=== PATIENT | female | born 1930 | race Caucasian/White ===

== ENCOUNTER 2016-04-03 18:31 | Emergency (ER) | payer MEDICARE, OTHER ==
[2016-04-03] MEDS ORDERED: 0.9 % SODIUM CHLORIDE 500 ML IV ONE ×2 (19:03→20:22)
--- NOTE | 2016-04-03 19:29 | ED Physician Documentation ---
General Adult - HISTORIAN Historian: patient, other (sister) - HPI Stated Complaint: temp/elevated pulse Chief Complaint: General Adult Additional Information: Fell at about 1130 today and hit the back of her head. No LOC. Temp 99.4 in ER. Tylenol given at 1600. PRN lasix has been given every day for weeks. - ROS CONST: fever (per NH, no numbers given) GI/: denies: problems urinating - PAST HX Past History: hypertension, other ("chronic UTI's," Parkinson's, spinal stenosis , chronic back pain) Allergies/Adverse Reactions: Allergies Allergy/AdvReac Type Severity Reaction Status Date / Time No Known Allergies Allergy Verified 04/03/16 18:59 Home Medications: Ambulatory Orders Medication Instructions Recorded Aspirin [Adult Low Dose Aspirin EC] 81 mg PO 04/03/16 Furosemide [Lasix] 20 mg PO PRN PRN 04/03/16 Gabapentin [Neurontin] 100 mg HS 04/03/16 Meloxicam [Mobic] 15 mg PO 04/03/16 Metoprolol Tartrate [Lopressor] 25 mg PO 04/03/16 Multivit with Calcium,Iron,Min 1 each PO 04/03/16 [Tab A Belinda] Nitrofurantoin Monohyd/M-Cryst 100 mg PO Q12H #14 capsule 04/03/16 [Macrobid] Polyethylene Glycol 3350 [Miralax] 04/03/16 Psyllium Husk [Metamucil] 425 gm PO 04/03/16 Ropinirole HCl [Ropinirole HCl] 04/03/16 Sertraline HCl [Sertraline HCl] 04/03/16 Trospium Chloride [Sanctura] 20 mg PO 04/03/16 amLODIPine BESYLATE [Norvasc] 5 mg PO 0900 04/03/16 - SOCIAL HX Smoking History: non-smoker Alcohol Use: none Drug Use: none - FAMILY HX Family History: No - VITAL SIGNS Vital Signs: Vital Signs Temp Pulse Resp BP Pulse Ox 99.2 F 92 H 18 113/58 97 04/03/16 18:50 04/03/16 18:50 04/03/16 18:50 04/03/16 18:50 04/03/16 18:50 - REVIEWED ASSESSMENTS Nursing Assessment Reviewed: Yes Vitals Reviewed: Yes Progress - Progress Progress: CT brain noncontrast Date of study: April 03, 2016. CLINICAL HISTORY: PT FELL TODAY, HIT BACK OF HEAD (Hx) / FALL (DICOM Hx) TECHNIQUE: 5 mm contiguous axial images of the brain, noncontrast with sagittal and coronal multiplanar reconstructions. FINDINGS: Diffuse cortical and central atrophy is present with chronic periventricular microvascular ischemic changes. 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 Chronic infarcts are present in the right external capsule. There is no evidence of intracranial mass effect, hemorrhage, or acute infarct. The lateral ventricles are symmetrical and the 4th ventricle is midline without shift. No acute brain parenchymal changes or extra-axial fluid collections are identified. The posterior fossa contents are within normal limits. Left occipital scalp soft tissue swelling is present at the vertex with a small component of scalp hematoma. The calvarium is intact. The visualized sinuses and mastoid air cells are clear. IMPRESSION: No acute intracranial process. Atrophy and chronic infarcts. Left occipital scalp soft tissue swelling and small component of scalp hematoma. Electronically signed on Apr 03, 2016 7:25:13 PM SOCIAL SERVICE MANAGER by: Irving Stearns Chest AP portable Exam: April 03, 2016. Clinical history: Fall. Findings: There are no comparison studies. The cardiac and mediastinal silhouettes are normal. The lungs are clear. There is now evidence of pneumothorax. The trachea is midline. Aortic arch atherosclerotic calcifications are noted. Impression: No acute cardiopulmonary abnormality. Electronically signed on Apr 03, 2016 7:34:04 PM SOCIAL SERVICE MANAGER by: Irving Stearns UA with 1+ leuk's, sp gr 1.025 ED Results Lab/Radiology - Orders Orders: ED Orders Category Date Time Status Place Saline Lock/IV Now Care 04/03/16 19:03 Active CHEST 1 VIEW [RAD] Stat Exams 04/03/[address] BRAIN W/O CONTRAST Stat Exams 04/03/16 Ordered CBC/PLATELET/DIFF Routine Lab 04/03/16 Ordered CMP Routine Lab 04/03/16 Ordered URINALYSIS Routine Lab 04/03/16 Ordered 0.9 % Sodium Chloride [Normal Saline] 500 ml Med 04/03/16 19:03 Active IV NOW General Adult Physical Exam - PHYSICAL EXAM GENERAL APPEARANCE: no distress EENT: eye inspection normal, pharynx normal, dry mucous membranes NECK: normal inspection, supple RESPIRATORY: no resp distress, chest non-tender, breath sounds normal CVS: reg rate & rhythm, murmur (1-2/6 RENITA) ABDOMEN: soft, normal bowel sounds, no distension RECTAL: deferred BACK: normal inspection, no CVA tenderness SKIN: warm/dry, normal color EXTREMITIES: no evidence of injury, no edema NEURO: CN's nml as tested, motor nml, sensation nml Discharge Clincal Impression: UTI (urinary tract infection) Qualifiers: Urinary tract infection type: acute cystitis Hematuria presence: with hematuria Qualified Code(s): N30.01 - Acute cystitis with hematuria Additional Instructions: Drink more water. Take all the antibiotics as prescribed. Home Medications: Ambulatory Orders Aspirin [Adult Low Dose Aspirin EC] 81 mg PO 04/03/16 Furosemide [Lasix] 20 mg PO PRN PRN 04/03/16 Gabapentin [Neurontin] 100 mg HS 04/03/16 Meloxicam [Mobic] 15 mg PO 04/03/16 Metoprolol Tartrate [Lopressor] 25 mg PO 04/03/16 Multivit with Calcium,Iron,Min [Tab A Belinda] 1 each PO 04/03/16 Nitrofurantoin Monohyd/M-Cryst [Macrobid] 100 mg PO Q12H #14 capsule 04/03/16 Polyethylene Glycol 3350 [Miralax] 04/03/16 Psyllium Husk [Metamucil] 425 gm PO 04/03/16 Ropinirole HCl [Ropinirole HCl] 04/03/16 Sertraline HCl [Sertraline HCl] 04/03/16 Trospium Chloride [Sanctura] 20 mg PO 04/03/16 amLODIPine BESYLATE [Norvasc] 5 mg PO 0900 04/03/16 Condition: Fair Disposition: 01 HOME, SELF-CARE Decision to Admit: NO Decision Time: 20:27
[2016-04-03 19:56] LABS: BASOPHILS % 0.2 (0.0-1.5); EOSINOPHILS % 1.1 % (0.0-6.8); LYMPHOCYTES # 0.7 # k/uL (0.6-4.0); MEAN CORPUSCULAR HEMOGLOBIN 30.6 pg (28.0-34.0); MONOCYTES # 0.4 # k/uL (0.0-0.9); MONOCYTES % 4.3 % (0.0-11.0); NEUTROPHILS # 7.6 # k/uL (1.4-7.7)
[2016-04-03 20:03] LABS: eGFR (African) > 60; eGFR (Non-African) > 60
[2016-04-03] MEDS ORDERED: NITROFURANTOIN 100 MG CAPSULE PO ONE ×2 (20:22→20:23)
[2016-04-03 21:20] VITALS: BP 115/68
--- NOTE | 2016-04-04 02:08 | Diagnostic Imaging Report ---
Report Submission Date: Apr 03, 2016 7:34:04 PM SHEET METAL MECHANIC Patient ~ Study Name: VON CHILDRESS ~ Date: Apr 03, 2016 7:17:01 PM SHEET METAL MECHANIC ~ Modality Type: CR Gender: F ~ Description: CHEST : 29 ~ Institution: [facility] Physician: JEFF CAZARES ~ ~ ~ ~ Chest AP portable Exam: April 03, 2016. Clinical history: Fall. Findings: There are no comparison studies. The cardiac and mediastinal silhouettes are normal. The lungs are clear. There is now evidence of pneumothorax. The trachea is midline. Aortic arch atherosclerotic calcifications are noted. Impression: No acute cardiopulmonary abnormality. ~ Electronically signed on Apr 03, 2016 7:34:04 PM SHEET METAL MECHANIC by: Irving ELLER
--- NOTE | 2016-04-04 02:09 | Diagnostic Imaging Report ---
Report Submission Date: Apr 03, 2016 7:25:13 PM HEAVY EQUIPMENT FIELD MECHANIC Patient ~ Study Name: VON CHILDRESS ~ Date: Apr 03, 2016 7:09:16 PM HEAVY EQUIPMENT FIELD MECHANIC ~ Modality Type: CT\SR Gender: F ~ Description: CT BRAIN W/O CONTRAST : 29 ~ Institution: [facility] Physician: JEFF CAZARES ~ ~ ~ ~ CT brain noncontrast Date of study: April 03, 2016. CLINICAL HISTORY:~ PT FELL TODAY, HIT BACK OF HEAD (Hx) / FALL (DICOM Hx) TECHNIQUE: 5 mm contiguous axial images of the brain, noncontrast with sagittal and coronal multiplanar reconstructions. FINDINGS: Diffuse cortical and central atrophy is present with chronic periventricular microvascular ischemic changes. 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 Chronic infarcts are present in the right external capsule. There is no evidence of intracranial mass effect, hemorrhage, or acute infarct. The lateral ventricles are symmetrical and the 4th ventricle is midline without shift. No acute brain parenchymal changes or extra-axial fluid collections are identified. The posterior fossa contents are within normal limits. Left occipital scalp soft tissue swelling is present at the vertex with a small component of scalp hematoma. The calvarium is intact. The visualized sinuses and mastoid air cells are clear. IMPRESSION: No acute intracranial process. Atrophy and chronic infarcts. Left occipital scalp soft tissue swelling and small component of scalp hematoma. ~ Electronically signed on Apr 03, 2016 7:25:13 PM HEAVY EQUIPMENT FIELD MECHANIC by: Irving ELLER
[2016-04-04 05:57] LABS: APPEARANCE,URINE CLOUDY (CLEAR); COLOR,URINE YELLOW (YELLOW); OCCULT BLOOD,URINE 1+ (NEGATIVE); UROBILINOGEN URINE 0.2 Eu (0.2-1.0)
== END 2016-04-03 20:55 | disposition home or self-care (01) ==
LOC: ED 18:31
DX: N30.01 Acute cystitis with hematuria (principal)
CPT/HCPCS: 70450; 71010; 80053; 81002; 85025; 87088; 87186; 96360; 96361; 99283; 99284; J7060; S1016

== ENCOUNTER 2016-07-04 16:19 | Inpatient (IN) | payer MEDICARE, OTHER ==
[2016-07-04 16:49] LABS: BASOPHILS % 0.5 (0.0-1.5); EOSINOPHILS % 4.2 % (0.0-6.8); MEAN CORPUSCULAR HEMOGLOBIN 29.3 pg (28.0-34.0); MEAN CORPUSCULAR VOLUME 93.8 fl (80.0-100.0); NEUTROPHILS # 5.5 # k/uL (1.4-7.7)
[2016-07-04 16:59] LABS: eGFR (African) > 60; eGFR (Non-African) > 60
[2016-07-04] MEDS ORDERED: SALINE FLUSH 10 ML DISP.SYRIN IVF ONE ×2 (17:51→23:31)
[2016-07-04] MEDS ORDERED: traMADol HCL 50 MG TABLET PO PRN (18:46)
[2016-07-04] MEDS ORDERED: FUROSEMIDE 20 MG TABLET PO PRN (18:46)
[2016-07-04] MEDS ORDERED: 0.9 % SODIUM CHLORIDE 1,000 ML IV SCH (19:00)
[2016-07-04] MEDS ORDERED: GABAPENTIN 100 MG CAPSULE ONE (19:03)
[2016-07-04] MEDS ORDERED: traMADol HCL 50 MG TABLET ONE (19:35)
[2016-07-04] MEDS ORDERED: GABAPENTIN 100 MG CAPSULE PO SCH (21:00)
[2016-07-04] MEDS ORDERED: traMADol HCL 50 MG TABLET PO SCH (21:00)
--- NOTE | 2016-07-04 21:32 | History and Physical Report ---
History of Present Illnes - History of Present Illness Reason for Visit: fatigue, does not feel well History of Present Illness: 85yo white female who states that she has not been feeling well over the last several weeks. Today she has a sudden episode where she became lightheaded and felt that she might pass out. Just did not feel well and came to the clinic for evaluation. Patient denies any fever or chills. No chest pain. Has had some heart palpitations at times. No orthopnic symptoms except for today. Patient has had some chronic anemia problems. Last Hgb was 11.8 on Apr 03. Today's Hgb is 7.7. Patient denies any melena or hematachezia. Has had some mild indigestion at times. Patient was seen in clinic today and had a slight drop in BP with orthostatic changes, (13ml Hg) Patient appeared to have some air fluids levels in darrell small bowel on x-ray. She did have two small BM today. Does feel bloated some and has been nauseated but no vomiting noted. Because of symptomatic anemia and possibly deveoping illeus patient was admitted tot [facility] for transfusion and further evaluation and treatment. - Past Medical History Cardiac: HTN CANNONEER: Other (? Parkinson's disease) Psych: Depression Musculoskeletal: Osteoarthritis, Other (spinal stenosis) - Past Surgical History Past Surgical History: None - Past Family History Mother Family History: Father Family History: (elderly age from unkown cause) - Past Social History Smoke: No Alcohol: None Drugs: None Lives: Care Home ([facility]) Domestic Violence: Negative - Health Maintenance Health Maintenance: Influenza Vaccine, Pneumococcal Vaccine Influenza Vaccine: Current for this Influenza Season Pneumonia Vaccine: Yes Resuscitation Status: Resusciation Status Resuscitation Status Full Code - Unable to Obtain History Unable to Obtain: Yes Review of Systems - Review of Systems Constitutional: Weakness, Malaise. negative: Fever, Chills, Sweats Eyes: negative: pain, vision change ENT: negative: Ear Pain, Ear Discharge, Nose Pain, Nose Discharge, Nose Congestion, Mouth Pain, Mouth Swelling, Throat Swelling Respiratory: Shortness of Breath, SOB with Excertion. negative: Cough, Hemoptysis, Pleuritic Pain Cardiovascular: Palpitations, Orthopnea, Light Headedness. negative: Chest Pain , Paroxysmal Noc. Dyspnea Gastrointestinal: negative: Nausea, Vomiting, Abdominal Pain, Diarrhea, Constipation, Melena, Hematochezia Genitourinary: Incontinence, Other (uterine prolapse). negative: Dysuria, Frequency Musculoskeletal: Neck Pain, Back Pain Skin: negative: Rash Neurological: Weakness. negative: Numbness, Incoordination, Change in Speech, Confusion, Seizures - Medications/Allergies Allergies/Adverse Reactions: Allergies Allergy/AdvReac Type Severity Reaction Status Date / Time No Known Allergies Allergy Verified 04/03/16 18:59 Current Inpatient Medications: Current Inpatient Medications Amlodipine Besylate (Norvasc) 5 mg PO 0900 [facility] Furosemide (Lasix) 20 mg PO PRN PRN PRN Reason: edema Gabapentin (Neurontin) 100 mg PO HS [facility] Last Admin: 07/04/16 19:39 Dose: 100 mg Sodium Chloride (Normal Saline) 1,000 mls @ 100 mls/hr IV Q10H [facility] Last Admin: 07/04/16 18:55 Dose: 100 mls/hr Polyethylene Glycol (Miralax) 17 gm PO D BARB Tramadol HCl (Ultram) 50 mg PO QID PRN PRN Reason: PAIN Tramadol HCl (Ultram) 100 mg PO [facility] Last Admin: 07/04/16 19:39 Dose: 100 mg Exam - Exam Vital Signs: Vital Signs (72 hours) 07/04/16 18:40 Temperature 97.5 F L Pulse Rate [ 96 H Left] Respiratory 20 Rate Blood Pressure 106/62 [Left Arm] O2 Sat by Pulse 99 Oximetry General: Alert, Oriented to Person, Oriented to Place, Cooperative, Mild distress. No: Oriented to Time HEENT: Atraumatic, PERRLA, Mouth Mucous membr. moist/[place], Dentition Normal, Decreased Hearing Acuity Neck: Normal Range of Motion. No: Stridor, Rigidity, Lymphadenopathy Carotids: WNL Thyroid: WNL Lungs: Clear to auscultation, Normal air movement, Speaks full Sentences. No: Respiratory Distress, Wheezes, Rales, Rhonchi Cardiovascular: Regular rate, Normal S1, Normal S2, Murmur Murmur: Systolic Murmur (grade 1/6) Murmur Location: Left Sternal [place] Heart Murmur Grade: I Peripheral Edema: none Abdomen: No tenderness, No hepatospenomegaly, Distended (mild), Decreased Bowel Sounds Female Genitourinary: Prolapse Integumentary: Normal, [place], Warm Extremities: No clubbing, No cyanosis, No edema. No: Normal pulses (dimenished) Neurological: Normal speech, Strength Equal Bilat, Normal tone, Sensation intact , Cranial nerves 3-12 NL, Reflexes 2+. No: Normal gait Psych/Mental Status: Mental status NL, Mood NL, Intact Judgment - Laboratory Results Laboratory Results: Laboratory Results 07/04/16 07/04/16 07/04/16 16:28 16:28 16:28 WBC 8.70 RBC 2.62 L Hgb 7.7 L Hct 24.5 L MCV 93.8 MCH 29.3 MCHC 31.3 RDW 16.2 H Plt Count 297 Neut % (Auto) 63.6 Lymph % (Auto) 27.3 [place] % (Auto) 3.0 Eos % (Auto) 4.2 Baso % (Auto) 0.5 Neut # 5.5 Lymph # 2.4 [place] # 0.3 Eos # 0.4 Baso # 0.0 Reactive Lymphs % 1.5 Reactive Lymphs # 0.1 Sodium 135 L Potassium 4.0 Chloride 107 Carbon Dioxide 24 BUN 36 H Creatinine 0.8 Est GFR ( Amer) > 60 Est GFR (Non-Af Amer) > 60 Glucose 145 H Calcium 8.9 Total Bilirubin 0.4 AST 17 ALT 11 Alkaline Phosphatase 45 L Troponin I < 0.03 L NT-Pro-B Natriuret Pep 219.0 Total Protein 5.8 L Albumin 3.6 Stool Guaiac Test 07/04/16 20:00 WBC RBC Hgb Hct MCV MCH MCHC RDW Plt Count Neut % (Auto) Lymph % (Auto) [place] % (Auto) Eos % (Auto) Baso % (Auto) Neut # Lymph # [place] # Eos # Baso # Reactive Lymphs % Reactive Lymphs # Sodium Potassium Chloride Carbon Dioxide BUN Creatinine Est GFR ( Amer) Est GFR (Non-Af Amer) Glucose Calcium Total Bilirubin AST ALT Alkaline Phosphatase Troponin I NT-Pro-B Natriuret Pep Total Protein Albumin Stool Guaiac Test Positive H Assessment/Plan - Assessment/Plan (1) Anemia Status: Acute Qualifiers: Anemia type: unspecified type Qualified Code(s): D64.9 - Anemia, unspecified Assessment: suspect due to GI blood loss. Will get stool guiac,will transfuse 2 untis of PRBC and recheck H&H (2) Ileus, unspecified Status: Acute Assessment: Patient is having some small BM. Will place on clear liquids at thsi time and monitor. (3) Essential hypertension Status: Chronic Assessment: Will monitor and continue with home meds. VTE Assessment - RISK FACTOR SCORE VTE RISK FACTOR SCORES: AGE OVER 60 YEARS, ANTICIPATED BED CONFINEMENT OR IMMOBILIZATION > 24 HOURS - RISK VTE MODERATE RISK: SCORE OF 2 (RISK PROXIMAL DVT 2-4%) PROPHYAXIS NEEDED ( Possible GI bleed, will monitor.)
[2016-07-04] MEDS ORDERED: LORazepam 0.5 MG TABLET ONE (21:35)
[2016-07-04] MEDS: LORazepam 0.5 MG TABLET PO PRN (21:39)
[2016-07-04] MEDS ORDERED: ACETAMINOPHEN 325 MG TABLET ONE (21:42)
[2016-07-04] MEDS ORDERED: diphenhydrAMINE HCL 25 MG TABLET PO ONE ×2 (21:43→22:09)
[2016-07-04] MEDS ORDERED: ONDANSETRON HCL/PF 4 MG/ 2ML VIAL IVP ONE (22:06)
[2016-07-04] MEDS ORDERED: ACETAMINOPHEN 325 MG TABLET PO ONE (22:10)
--- NOTE | 2016-07-04 22:48 | Diagnostic Imaging Report ---
NADINE HELTON [facility] [id number] [facility] [address] [place], [place]. [address] Report Submission Date: July 04, 2016 5:39:49 PM CDT Patient Study Name: VON CHILDRESS Date: July 04, 2016 4:45:35 PM CDT Modality Type: CR Gender: F Description: CHEST : 28 Institution: [facility] Physician: NADIEN HELTON PA and lateral chest Clinical history short of breath weakness Technique PA and lateral radiographs of the chest the Comparison April 03, 2016 Findings: The lung micheel are hyperinflated. Compression fractures are present in the thoracic spine. No hilar mediastinal mass is seen. There is aortic atherosclerosis. No pleural effusions are seen. Impression: Aortic atherosclerosis Hyperinflation No acute infiltrate Thoracic spine compression fractures Electronically signed on July 04, 2016 5:39:49 PM CDT by: Arik ELLER
--- NOTE | 2016-07-04 22:49 | Diagnostic Imaging Report ---
NADINE HELTON [facility] [address] [facility] [address] [place], [place]. [address] Report Submission Date: July 04, 2016 5:41:57 PM CDT Patient Study Name: VON CHILDRESS Date: July 04, 2016 4:42:56 PM CDT Modality Type: CR Gender: F Description: ABDOMEN : 28 Institution: [facility] Physician: NADINE HELTON Abdominal series Supine and upright Findings: There is no free air. There are few air-fluid levels scattered through the bowel consistent with ileus or gastroenteritis. No abdominal masses seen. The lung bases are clear. There is lumbar spondylosis. A calcified uterine fibroid is present in the pelvis. Hip degenerative arthritis is present. A hiatus hernia is present in the chest. There is no air fluid level in the hiatus hernia. Impression : ileus or gastroenteritis Hiatus hernia Calcified uterine fibroid Electronically signed on July 04, 2016 5:41:57 PM CDT by: Arik ELLER
[2016-07-04] MEDS ORDERED: ONDANSETRON HCL/PF 4 MG/ 2ML VIAL ONE (22:52)
[2016-07-04] MEDS ORDERED: PANTOPRAZOLE SODIUM INJ. 40 MG VIAL ONE (22:53)
[2016-07-04] MEDS ORDERED: 0.9 % SODIUM CHLORIDE 50 ML IV ONE (22:59)
[2016-07-04] MEDS ORDERED: PANTOPRAZOLE SODIUM 40 MG in 0.9 % SODIUM CHLORIDE 50 ML IV SCH (23:00)
[2016-07-04 23:11] LABS: SERUM IRON 83 ug/dL (37-145)
[2016-07-04] MEDS ORDERED: LORazepam 2 MG/ML VIAL IVP ONE (23:22)
[2016-07-04] MEDS ORDERED: LORazepam 2 MG/ML VIAL ONE (23:32)
[2016-07-04 23:43] VITALS: BMI 25.9
--- NOTE | 2016-07-05 00:56 | History and Physical Report ---
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 Parkinson's disease) Psych: Depression Musculoskeletal: Osteoarthritis, Other (spinal stenosis) - Past Surgical History Past Surgical History: None - Past Social History Smoke: No Alcohol: None Drugs: None Lives: [facility] ([facility]) Domestic Violence: Negative - Health Maintenance Health Maintenance: Influenza Vaccine, Pneumococcal Vaccine Resuscitation Status: Resusciation Status Resuscitation Status Full Code Review of Systems - Medications/Allergies Allergies/Adverse Reactions: Allergies Allergy/AdvReac Type Severity Reaction Status Date / Time No Known Allergies Allergy Verified 04/03/16 18:59 Current Inpatient Medications: Current Inpatient Medications Acetaminophen (Tylenol) 325 mg PO NOW ONE Stop: 07/04/16 22:11 Last Admin: 07/04/16 21:45 Dose: 325 mg Amlodipine Besylate (Norvasc) 5 mg PO 0900 BARB Diphenhydramine HCl (Benadryl) 25 mg PO NOW ONE Stop: 07/04/16 22:10 Last Admin: 07/04/16 21:45 Dose: 25 mg Furosemide (Lasix) 20 mg PO PRN PRN PRN Reason: edema Gabapentin (Neurontin) 100 mg PO HS BARB Last Admin: 07/04/16 19:39 Dose: 100 mg Sodium Chloride (Normal Saline) 1,000 mls @ 100 mls/hr IV Q10H BARB Last Admin: 07/04/16 18:55 Dose: 100 mls/hr Pantoprazole Sodium 40 mg/ (Sodium Chloride) 50 mls @ 100 mls/hr IV 1T [facility] Last Admin: 07/04/16 23:20 Dose: 100 mls/hr Lorazepam (Ativan) 0.5 mg PO HS PRN PRN Reason: Insomnia Last Admin: 07/04/16 21:39 Dose: 0.5 mg Lorazepam (Ativan) 1 mg IVP NOW ONE Stop: 07/04/16 23:23 Last Admin: 07/04/16 23:30 Dose: 1 mg Ondansetron HCl (Zofran 4 Mg/2 Ml) 4 mg IVP NOW ONE Stop: 07/04/16 22:07 Last Admin: 07/04/16 22:59 Dose: 4 mg Polyethylene Glycol (Miralax) 17 gm PO D BARB Tramadol HCl (Ultram) 50 mg PO QID PRN PRN Reason: PAIN Tramadol HCl (Ultram) 100 mg PO HS [facility] Last Admin: 07/04/16 19:39 Dose: 100 mg Exam - Exam Vital Signs: Vital Signs (72 hours) 07/04/16 07/04/16 18:40 22:40 Temperature 97.5 F L Pulse Rate [ 96 H 102 H Left] Respiratory 20 20 Rate Blood Pressure 106/62 [Left Arm] O2 Sat by Pulse 99 Oximetry - Laboratory Results Laboratory Results: Laboratory Results 07/04/16 07/04/16 07/04/16 16:28 16:28 16:28 WBC 8.70 RBC 2.62 L Hgb 7.7 L Hct 24.5 L MCV 93.8 MCH 29.3 MCHC 31.3 RDW 16.2 H Plt Count 297 Neut % (Auto) 63.6 Lymph % (Auto) 27.3 [place] % (Auto) 3.0 Eos % (Auto) 4.2 Baso % (Auto) 0.5 Neut # 5.5 Lymph # 2.4 [place] # 0.3 Eos # 0.4 Baso # 0.0 Reactive Lymphs % 1.5 Reactive Lymphs # 0.1 Sodium 135 L Potassium 4.0 Chloride 107 Carbon Dioxide 24 BUN 36 H Creatinine 0.8 Est GFR ( Amer) > 60 Est GFR (Non-Af Amer) > 60 Glucose 145 H Calcium 8.9 Iron Iron (send out) TIBC % Saturation Total Bilirubin 0.4 AST 17 ALT 11 Alkaline Phosphatase 45 L Troponin I < 0.03 L NT-Pro-B Natriuret Pep 219.0 Total Protein 5.8 L Albumin 3.6 Stool Guaiac Test 07/04/16 07/04/16 16:30 20:00 WBC RBC Hgb Hct MCV MCH MCHC RDW Plt Count Neut % (Auto) Lymph % (Auto) [place] % (Auto) Eos % (Auto) Baso % (Auto) Neut # Lymph # [place] # Eos # Baso # Reactive Lymphs % Reactive Lymphs # Sodium Potassium Chloride Carbon Dioxide BUN Creatinine Est GFR ( Amer) Est GFR (Non-Af Amer) Glucose Calcium Iron 83 Iron (send out) 83 TIBC 281 % Saturation 30 Total Bilirubin AST ALT Alkaline Phosphatase Troponin I NT-Pro-B Natriuret Pep Total Protein Albumin Stool Guaiac Test Positive H
--- NOTE | 2016-07-05 01:00 | Discharge Summary ---
Discharge Summary - Discharge Sumary History of Present Illness: 85yo white female who states that she has not been feeling well over the last several weeks. Today she has a sudden episode where she became lightheaded and felt that she might pass out. Just did not feel well and came to the clinic for evaluation. Patient denies any fever or chills. No chest pain. Has had some heart palpitations at times. No orthopnic symptoms except for today. Patient has had some chronic anemia problems. Last Hgb was 11.8 on Apr 03. Today's Hgb is 7.7. Patient denies any melena or hematachezia. Has had some mild indigestion at times. Patient was seen in clinic today and had a slight drop in BP with orthostatic changes, (13ml Hg) Patient appeared to have some air fluids levels in darrell small bowel on x-ray. She did have two small BM today. Does feel bloated some and has been nauseated but no vomiting noted. Because of symptomatic anemia and possibly deveoping illeus patient was admitted tot [facility] for transfusion and further evaluation and treatment. Condition at Discharge: Guarded Home Medications: Ambulatory Orders Medication Instructions Recorded Aspirin [Adult Low Dose Aspirin EC] 81 mg PO 04/03/16 Furosemide [Lasix] 20 mg PO PRN PRN 04/03/16 Gabapentin [Neurontin] 100 mg HS 04/03/16 Meloxicam [Mobic] 15 mg PO 04/03/16 Metoprolol Tartrate [Lopressor] 25 mg PO 04/03/16 Multivit with Calcium,Iron,Min 1 each PO 04/03/16 [Tab A Belinda] Nitrofurantoin Monohyd/M-Cryst 100 mg PO Q12H #14 capsule 04/03/16 [Macrobid] Polyethylene Glycol 3350 [Miralax] 04/03/16 Psyllium Husk [Metamucil] 425 gm PO 04/03/16 Ropinirole HCl 04/03/16 Sertraline HCl 04/03/16 Trospium Chloride [Sanctura] 20 mg PO 04/03/16 amLODIPine BESYLATE [Norvasc] 5 mg PO 0900 04/03/16 Consultations this Visit: None Procedures this Visit: None Allergies/Adverse Reactions: Allergies Allergy/AdvReac Type Severity Reaction Status Date / Time No Known Allergies Allergy Verified 04/03/16 18:59 Patient Problems: Current Active Problems Problem Status Onset Anemia Acute Ileus, unspecified Acute Essential hypertension Chronic Discharge Summary: Patient was admitted for treatment of GI bleed with IV PPI and blood transfusion. During infusion of 1st unit, patient developed coffee ground emesis. NG tube was placed. Eventually drainage was noted to be bright red blood. Patient became very combative, pulling out both IV sites and her NG tube. NG cannister was noted to be 1500 cc bright red blood. BP was 140/80 with pulse 80. Decision was made to transfer to a facility with GI consult abilities. I contacted [facility], which was patient family preference. After not hearing back from the housekeeper manager, Caitlyn, 40 min later, I called her back. I was told "there was nothing they could do for her until morning." I instructed her that this patient is an acute GI bleed and needs to be in a higher level of care. She said she would check with hospitalist again. She called back in 10 min. I was put on the phone with Dr. Conteh who told me it didn't sound like she needed to be transferred, despite the volume of blood we were getting out in such a short amount of time. I then contacted the [facility] and got an accepting physician. Patient transported in stable but guarded condition. Hospital Course: Discharge Dx: Acute GI bleed. HTN. Disposition: [facility]
[2016-07-05] MEDS: LORazepam 0.5 MG TABLET PO PRN (01:25)
[2016-07-05 02:40] VITALS: BP 141/87
[2016-07-05] MEDS ORDERED: amLODIPine BESYLATE 5 MG TABLET PO SCH (09:00)
[2016-07-05] MEDS ORDERED: PANTOPRAZOLE SODIUM 40 MG in 0.9 % SODIUM CHLORIDE 50 ML IV SCH (09:00)
[2016-07-05] MEDS ORDERED: POLYETHYLENE GLYCOL 3350 17 GM POWD.PACK PO SCH (09:00)
== END 2016-07-05 02:15 | disposition short-term general hospital (02) | DRG 379 ==
LOC: RAD 16:19 → SOUTH 17:42
PROVIDERS: ADMIT Family Medicine; ATTEND Family Medicine
DX: K92.2 Gastrointestinal hemorrhage, unspecified (principal); R06.02 Shortness of breath; K92.0 Hematemesis; R10.84 Generalized abdominal pain; I10 Essential (primary) hypertension
CPT/HCPCS: 36415; 71020; 74020; 80053; 82270; 83540; 83550; 83880; 84484; 85025; 86885; 86900; 86901; 86920; 99223; 99238; J2060; J2405; P9040; J7030; Q0163; S1016

== ENCOUNTER 2017-02-13 10:54 | Outpatient (CLI) | payer MEDICARE, OTHER ==
[2017-02-13 11:15] LABS: MEAN CORPUSCULAR HEMOGLOBIN 30.6 pg (28.0-34.0); MEAN CORPUSCULAR VOLUME 91.4 fl (80.0-100.0)
== END 2017-02-13 11:05 ==
LOC: LAB 10:54
PROVIDERS: ATTEND Family Medicine
DX: I10 Essential (primary) hypertension (principal); K57.92 Diverticulitis of intestine, part unspecified, without perforation or abscess without bleeding; G25.81 Restless legs syndrome; D72.829 Elevated white blood cell count, unspecified; R00.0 Tachycardia, unspecified
CPT/HCPCS: 36415; 85014; 85018

== ENCOUNTER 2017-05-08 08:59 | Emergency (ER) | payer MEDICARE, OTHER ==
[2017-05-08] MEDS ORDERED: IPRATROPIUM/ALBUTEROL SULFATE 3 ML AMPUL.NEB NEB ONE (09:28)
--- NOTE | 2017-05-08 09:34 | ED Physician Documentation ---
Dyspnea - HISTORIAN Historian: patient - HPI Chief Complaint: Dyspnea Additional Information: NH resident, not good historian, says nurses told her she wasn't breathing right this morning. She thinks her ankles are swelling more. No complaints otherwise, no pain, no fever. Onset: hours Duration: continues in ED Severity: mild Exacerbated By: nothing Associated Symptoms: none Further Comments: no - ROS CONST: no problems EYES/ENT: none GI/: none NEURO/PSYCH: denies: headache MS/SKIN/LYMPH: none - PAST HX Lung Disease: none Cardiac Disease: CHF PE Risk Factors: hypertension, leg swelling Surgeries/Procedures: other (unknown bladder surgery 40 years ago.) Immunizations: UTD Allergies/Adverse Reactions: Allergies Allergy/AdvReac Type Severity Reaction Status Date / Time No Known Allergies Allergy Verified 04/03/16 18:59 Home Medications: Ambulatory Orders Medication Instructions Recorded Aspirin [Senait] 81 mg PO D 05/08/17 Atorvastatin Calcium [Lipitor] 40 mg PO D 05/08/17 Bisacodyl 5 mg PO D 05/08/17 Furosemide [Lasix] 40 mg PO D 05/08/17 Gabapentin 100 mg PO BID 05/08/17 Loratadine [Claritin] 10 mg PO D 05/08/17 Metoprolol Tartrate [Lopressor] 25 mg PO D 05/08/17 Mirtazapine 7.5 mg PO HS 05/08/17 Omeprazole [Prilosec] 40 mg PO D 05/08/17 Polyethylene Glycol 3350 [Miralax] 17 gm PO D 05/08/17 Vit No.124/Iron/FA 1 tab PO D 05/08/17 [ Vitamin Tablet] Sennosides [Senna] 8.6 mg PO [id number] 05/08/17 Sennosides/Docusate Sodium 1 tab PO BID 05/08/17 [Senna-Docusate Sodium Tablet] Sertraline HCl [Zoloft] 50 mg PO D 05/08/17 Spironolactone [Aldactone] 25 mg PO D 05/08/17 Trospium Chloride [Sanctura] 20 mg PO D 05/08/17 amLODIPine BESYLATE [Norvasc] 5 mg PO D 05/08/17 rOPINIRole HCL [Requip] 1 mg PO BID 05/08/17 - SOCIAL HX Smoking History: non-smoker Alcohol Use: none Drug Use: none - FAMILY HX Family History: no significant history - VITAL SIGNS Vital Signs: Vital Signs Temp Pulse Resp BP Pulse Ox 141/87 07/05/16 02:00 - REVIEWED ASSESSMENTS Nursing Assessment Reviewed: Yes Vitals Reviewed: Yes ED Results Lab/Radiology - Radiology Radiology Impressions: No PE - Orders Orders: ED Orders Category Date Time Status Assess pulse oximetry Q1H Care 05/08/17 09:[address] IV Lock 1T Care 05/08/17 09:29 Ordered CHEST 2VIEW [RAD] Stat Exams 05/08/17 Ordered BNP [NT-proBNP] Stat Lab 05/08/17 Ordered CBC/PLATELET/DIFF Routine Lab 05/08/17 Ordered CMP Routine Lab 05/08/17 Ordered CREATINE KINASE Routine Lab 05/08/17 Ordered D DIMER Stat Lab 05/08/17 Ordered TROPONIN I (cTnI) Stat Lab 05/08/17 Ordered UA W MICRO [UA W/MICRO IF INDICATED] Routine Lab 05/08/17 09:31 Ordered Ipratropium/Albuterol Sulfate [Duoneb] Med 05/08/17 09:28 Once 3 ml NEB NOW ONE Oxygen Daily Oxygen 05/08/17 09:30 Ordered EKG WITH COMPARISON Stat Ther 05/08/17 Ordered Dyspnea Physical Exam - EXAM General Appearance: no acute distress, alert EENT: eye inspection normal, ENT inspection normal, pharynx normal, no signs of dehydration Neck: nml inspection Respiratory: no resp. distress, no pain on inspiration, speaks full sentences, wheezes CVS: reg. rate & rhythm, pulses full Abdomen: non-tender, no distention Skin: color nml, no rash Extremities: edema Neuro/Psych: oriented x3, mood/affect nml Discharge Clincal Impression: D-dimer, elevated UTI (urinary tract infection) Qualifiers: Urinary tract infection type: acute cystitis Hematuria presence: without hematuria Qualified Code(s): N30.00 - Acute cystitis without hematuria CHF (congestive heart failure) Qualifiers: Heart failure type: unspecified Heart failure chronicity: unspecified Qualified Code(s): I50.9 - Heart failure, unspecified Referrals: Eric Roque MD [Primary Care Provider] - 2 Days Condition: Stable Disposition: 01 HOME, SELF-CARE Decision to Admit: NO Date of Decison to Admit: 05/08/17 Decision Time: 12:45
[2017-05-08 09:55] LABS: BASOPHILS % 0.6 (0.0-1.5); EOSINOPHILS % 11.6 % (0.0-6.8); MEAN CORPUSCULAR HEMOGLOBIN 31.6 pg (28.0-34.0); MEAN CORPUSCULAR VOLUME 95.5 fl (80.0-100.0); MONOCYTES % 4.1 % (0.0-11.0); NEUTROPHILS # 3.4 # k/uL (1.4-7.7)
[2017-05-08 10:12] LABS: APPEARANCE,URINE CLOUDY (CLEAR); COLOR,URINE YELLOW (YELLOW)
[2017-05-08 10:13] LABS: OCCULT BLOOD,URINE 1+ (NEGATIVE); PH URINE 6.5 (5.0 - 8.0); UROBILINOGEN URINE 0.2 Eu (0.2-1.0)
[2017-05-08 10:23] LABS: eGFR (African) > 60; eGFR (Non-African) > 60
[2017-05-08] MEDS ORDERED: NORMAL SALINE 500 ML IV.SOLN IV ONE (11:01)
[2017-05-08 13:31] VITALS: BP 144/87
--- NOTE | 2017-05-08 18:34 | Diagnostic Imaging Report ---
LEANNE BETANCOURT [facility] [address] [facility] [address] 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 History: Evaluate lung michele. CXR, WHEEZE, DYSPNEA, COUGH FOR A FEW DAYS, (Hx ) Comparison exam: None available for direct view. Findings: PA lateral chest demonstrate a normal cardiac and mediastinal silhouette. Vascular calcification involving the aortic arch. Elevation of the right hemidiaphragm. Chronic interstitial changes. Apical pleural thickening. No focal infiltrate. No blunting of the costophrenic margins. Hiatal hernia. Articular degenerative changes. Impression: Chronic interstitial changes. No acute appearing pulmonary process. Hiatal hernia. Electronically signed on May 08, 2017 10:05:38 AM BURNISHING MACHINE OPERATOR by: Gage ELLER
--- NOTE | 2017-05-08 18:36 | Diagnostic Imaging Report ---
LEANNE BETANCOURT [facility] [address] [facility] [address] [place], [place]. 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 Technique: CT chest pulmonic pulmonary embolism protocol. Findings: No evidence for luminal filling defect within the main pulmonary arteries to the 3rd order branch vessels bilaterally. Thoracic aorta without aneurysmal dilation. No evidence for dissection flap. Peripheral wall of atherosclerotic disease and mural thickening. Lungs demonstrate dependent atelectasis bilaterally. No evidence for posterior pleural effusion or thickening. Generalized increased interstitial fullness. No mediastinal or prabha mass or pathologic adenopathy. Cardiac silhouette not enlarged. No pericardial effusion. Vascular calcifications. Osseous structures demonstrate degenerative changes. Midthoracic compression deformities. Lower neck structures, axilla regions, and upper abdominal organs are without gross irregularity. Large hiatal hernia. Impression: No evidence for pulmonary embolism by CT criteria. No evidence for thoracic aortic dissection or abnormality. Generalized increased interstitial fullness suggesting congestive edema. Parenchymal scarring without effusion. Large hiatal hernia. Midthoracic compression deformities - age indeterminate. Electronically signed on May 08, 2017 12:42:07 PM SHOT FIREMAN by: Gage ELLER
== END 2017-05-08 13:00 | disposition home or self-care (01) ==
LOC: ED 08:59
DX: N30.00 Acute cystitis without hematuria (principal); R06.00 Dyspnea, unspecified; I50.9 Heart failure, unspecified; I10 Essential (primary) hypertension
CPT/HCPCS: 71046; 71275; 80053; 81002; 82550; 83880; 84484; 85025; 85379; 87086; 87186; 94640; 96365; 99283; Q9967; S1016

== ENCOUNTER 2017-06-04 22:34 | Inpatient (IN) | payer MEDICARE, OTHER ==
[2017-06-04] MEDS ORDERED: 0.9 % SODIUM CHLORIDE 500 ML IV ONE (23:07)
[2017-06-04 23:13] LABS: BASOPHILS % 0.3 (0.0-1.5); EOSINOPHILS % 5.9 % (0.0-6.8); MEAN CORPUSCULAR HEMOGLOBIN 32.3 pg (28.0-34.0); MEAN CORPUSCULAR VOLUME 86.2 fl (80.0-100.0); MONOCYTES % 8.1 % (0.0-11.0); NEUTROPHILS # 3.3 # k/uL (1.4-7.7)
--- NOTE | 2017-06-04 23:13 | ED Physician Documentation ---
General Adult - HISTORIAN Historian: paramedics - [facility] Stated Complaint: critical lab values Chief Complaint: General Adult Onset: hours Timing: still present Severity: moderate Further Comments: yes (Pt is an 86 yo female who had labs drawn earlier today. Abnormal values, Ll=368; K=3.0. Pt had u/a with 3+ luek. Pt has been lethargic , but has answered questions appropriately, per telephone report from [facility]. Pt takes diuretics Lasix, Metalozone, and Spironolactone. Her daily dose of Lasix 40 mg is sometimes doubled if her daily weight increases 3 lbs or more.) - ROS CONST: weakness EYES/ENT: none CVS/RESP: none GI/: other (distended abd) MS/SKIN/LYMPH: none - PAST HX Past History: hypertension, other (CHF, ? Parkinson's, Depression, OA, spinal stenosis) Surgeries/Procedures: none Allergies/Adverse Reactions: Allergies Allergy/AdvReac Type Severity Reaction Status Date / Time No Known Allergies Allergy Verified 06/04/17 22:55 Home Medications: Ambulatory Orders Medication Instructions Recorded Aspirin [Senait] 81 mg PO DAILY 05/08/17 Atorvastatin Calcium [Lipitor] 40 mg PO HS 05/08/17 Bisacodyl 5 mg PO DAILY 05/08/17 Furosemide [Lasix] 40 mg PO DAILY 05/08/17 Gabapentin 300 mg PO BID 05/08/17 Loratadine [Claritin] 10 mg PO DAILY 05/08/17 Metoprolol Tartrate [Lopressor] 25 mg PO DAILY 05/08/17 Omeprazole [Prilosec] 40 mg PO DAILY 05/08/17 Polyethylene Glycol 3350 [Miralax] 17 gm PO DAILY 05/08/17 Vit No.124/Iron/FA 1 tab PO DAILY 05/08/17 [ Vitamin Tablet] Sennosides [Senna] 8.6 mg PO 1200 05/08/17 Sennosides/Docusate Sodium 1 tab PO BID 05/08/17 [Senna-Docusate Sodium Tablet] Sertraline HCl [Zoloft] 50 mg PO DAILY 05/08/17 Spironolactone [Aldactone] 25 mg PO DAILY 05/08/17 Trospium Chloride [Sanctura] 20 mg PO DAILY 05/08/17 amLODIPine BESYLATE [Norvasc] 5 mg PO DAILY 05/08/17 rOPINIRole HCL [Requip] 1 mg PO BID 05/08/17 Acetaminophen [Tylenol] 650 mg PO Q6 PRN 06/04/17 Guaifenesin [Mucinex] 600 mg PO BID PRN 06/04/17 Ibuprofen [Advil] 200 mg PO Q6H PRN 06/04/17 Mag Hydrox/Al Hydrox/Simeth 30 ml PO ACHS PRN 06/04/17 [Mylanta] Magnesium Hydroxide [Milk of 15 ml PO HS PRN 06/04/17 Magnesia] Metolazone [Zaroxolyn] 5 mg PO DAILY 06/04/17 - SOCIAL HX Smoking History: non-smoker Alcohol Use: none Drug Use: none - FAMILY HX Family History: No - VITAL SIGNS Vital Signs: Vital Signs Temp Pulse Resp BP Pulse Ox 98.2 F 73 16 171/68 97 06/04/17 22:35 06/04/17 22:35 06/04/17 22:35 06/04/17 22:35 06/04/17 22:35 - REVIEWED ASSESSMENTS Nursing Assessment Reviewed: Yes Vitals Reviewed: Yes Progress - Progress Progress: CXR: Obesity and clear lungs are observed. Heart size is normal. There is no pleural effusion. KUB: A midline pelvic calcification is consistent with a uterine fibroid. Obesity and lumbar spondylosis are observed. Gas is present within normal caliber loops of small bowel and colon. Impression: Obesity, uterine fibroid, lumbar spondylosis, and nonobstructive bowel gas pattern. start 1 L NS with 40 mEq KCl/Liter @ 100 cc/hr. - EKG/XRAY/CT EKG: NSR (HR=72; normal axis; normal [place] interval.) ED Results Lab/Radiology - Orders Orders: ED Orders Category Date Time Status Place IV Lock 1T Care 06/04/17 22:59 Active ABDOMEN 1VIEW [RAD] DAILY Exams 06/04/17 23:15 Ordered CHEST 1VIEW [RAD] Stat Exams 06/04/17 Ordered CBC/PLATELET/DIFF Routine Lab 06/04/17 23:05 Received CMP Routine Lab 06/04/17 23:05 Received CREATINE KINASE Routine Lab 06/04/17 23:05 Received NT-proBNP Stat Lab 06/04/17 23:05 Received TROPONIN I (cTnI) Stat Lab 06/04/17 23:05 Received URINALYSIS Routine Lab 06/04/17 Ordered 0.9 % Sodium Chloride [Normal Saline] 500 ml Med 06/04/17 23:07 Active IV NOW EKG WITH COMPARISON Stat Ther 06/04/17 Ordered General Adult Physical Exam - PHYSICAL EXAM GENERAL APPEARANCE: no distress EENT: eye inspection normal, dry mucous membranes NECK: normal inspection, supple RESPIRATORY: no resp distress, chest non-tender, breath sounds normal CVS: reg rate & rhythm, heart sounds normal ABDOMEN: soft, non-tender, decreased BS, distended BACK: normal inspection, no CVA tenderness SKIN: warm/dry, normal color EXTREMITIES: non-tender, normal range of motion, no evidence of injury NEURO: oriented X3, motor nml, sensation nml Discharge Clincal Impression: Hyponatremia, Hypokalemia, Dehydration Rhabdomyolysis Qualifiers: Rhabdomyolysis type: non-traumatic Qualified Code(s): M62.82 - Rhabdomyolysis Referrals: Eric Roque MD [Primary Care Provider] - Condition: Fair Disposition: ADMITTED INPATIENT Decision to Admit: [id number] Decision Time: 00:25
[2017-06-04 23:25] LABS: eGFR (African) > 60; eGFR (Non-African) > 60
[2017-06-04] MEDS ORDERED: POTASSIUM CHLORIDE 40 MEQ/NS 1,000 ML IV ONE (23:53)
[2017-06-05] MEDS: 0.9 % SODIUM CHLORIDE 1,000 ML, POTASSIUM CHLORIDE 40 MEQ/NS 40 ML IV SCH ×6 (00:20→23:22)
[2017-06-05] MEDS ORDERED: MAG HYDROX/ALUMINUM HYD/SIMETH 30 ML UDC PO PRN (00:42)
[2017-06-05] MEDS ORDERED: MAGNESIUM HYDROXIDE 400 MG/5 ML 30ML UDC PO PRN (00:42)
[2017-06-05 02:32] VITALS: BMI 27.4
[2017-06-05] MEDS: OMEPRAZOLE 20 MG CAPSULE.DR PO SCH ×2 (02:55→05:31)
[2017-06-05] MEDS: TOLTERODINE TARTRATE 2 MG CAP.ER.24H PO SCH ×2 (02:55→09:02)
[2017-06-05] MEDS ORDERED: ASPIRIN EC 81 MG TABLET.DR ONE (02:56)
[2017-06-05] MEDS ORDERED: FUROSEMIDE 40 MG TABLET PO ONE (02:57)
[2017-06-05] MEDS ORDERED: PANTOPRAZOLE SODIUM 40 MG TABLET ONE (03:04)
[2017-06-05] MEDS: IBUPROFEN 200 MG TABLET PO PRN (04:31)
--- NOTE | 2017-06-05 05:06 | Diagnostic Imaging Report ---
DAVINA LIMA [facility] [address] [facility] [address] [address] Report Submission Date: Jun 05, 2017 12:12:23 AM CDT Patient Study Name: VON CHILDRESS Date: Jun 04, 2017 11:48:24 PM CDT Modality Type: DX Gender: F Description: CHEST : 28 Institution: [facility] Physician: DAVINA LIMA Portable chest History: RALES, LETHARGIC Findings: Obesity and clear lungs are observed. Heart size is normal. There is no pleural effusion. Impression: Obesity and clear lungs. Electronically signed on Jun 05, 2017 12:12:23 AM CDT by: Saad ELLER
--- NOTE | 2017-06-05 05:07 | Diagnostic Imaging Report ---
DAVINA LIMA [facility] [address] [facility] [address] Report Submission Date: Jun 05, 2017 12:11:47 AM CDT Patient Study Name: VON CHILDRESS Date: Jun 04, 2017 11:40:45 PM CDT Modality Type: DX Gender: F Description: ABDOMEN : 28 Institution: [facility] Physician: DAVINA LIMA Single view abdomen History: Abdomen distention Findings: A midline pelvic calcification is consistent with a uterine fibroid. Obesity and lumbar spondylosis are observed. Gas is present within normal caliber loops of small bowel and colon. Impression: Obesity, uterine fibroid, lumbar spondylosis, and nonobstructive bowel gas pattern. Electronically signed on Jun 05, 2017 12:11:47 AM CDT by: Saad ELLER
[2017-06-05] MEDS: ACETAMINOPHEN 325 MG TABLET PO PRN ×2 (05:54→20:14)
[2017-06-05 08:16] LABS: BASOPHILS % 0.2 (0.0-1.5); EOSINOPHILS % 4.5 % (0.0-6.8); MEAN CORPUSCULAR HEMOGLOBIN 31.4 pg (28.0-34.0); MEAN CORPUSCULAR VOLUME 86.7 fl (80.0-100.0); MONOCYTES % 6.8 % (0.0-11.0); NEUTROPHILS # 4.2 # k/uL (1.4-7.7)
--- NOTE | 2017-06-05 08:22 | History and Physical Report ---
History of Present Illnes - History of Present Illness Reason for Visit: hyponatremia History of Present Illness: Patient is a 89-year-old white female who is not been feeling well. Patient is been having some problems with congestive heart failure increased peel edema. Patient has been placed on several diuretics to try to help with her peel edema. Patient did have blood work today which showed a markedly decreased sodium level to 109. Patient was subsequently admitted to the hospital for further evaluation. 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 Parkinson's disease) Psych: Depression Musculoskeletal: Osteoarthritis, Other (spinal stenosis) - Past Surgical History Past Surgical History: None - Past Family History Mother Family History: Father Family History: (elderly age from unkown cause) - Past Social History Smoke: No Alcohol: None Drugs: None Lives: Residential ([facility]) Domestic Violence: Negative - Health Maintenance Health Maintenance: Influenza Vaccine, Pneumococcal Vaccine Pneumonia Vaccine: Yes Resuscitation Status: Resusciation Status Resuscitation Status Do Not Resuscitate - Unable to Obtain History Unable to Obtain: No Review of Systems - Review of Systems Constitutional: negative: Fever, Sweats Eyes: negative: pain, vision change ENT: negative: Ear Pain, Ear Discharge, Nose Pain, Nose Discharge Respiratory: Shortness of Breath (mild). negative: Cough, Dry, Hemoptysis, SOB with Excertion, Pleuritic Pain Cardiovascular: negative: Chest Pain, Palpitations, Paroxysmal Noc. Dyspnea, Light Headedness Gastrointestinal: Constipation. negative: Nausea, Vomiting, Abdominal Pain, Diarrhea, Melena, Hematochezia Genitourinary: negative: Dysuria, Frequency, Hematuria Musculoskeletal: negative: Neck Pain, Shoulder Pain Skin: negative: Rash Neurological: Weakness. negative: Numbness, Incoordination, Change in Speech - Medications/Allergies Allergies/Adverse Reactions: Allergies Allergy/AdvReac Type Severity Reaction Status Date / Time No Known Allergies Allergy Verified 06/04/17 22:55 Home Medications: Home Medications Acetaminophen [Tylenol] 650 mg PO Q6 PRN 06/04/17 Guaifenesin [Mucinex] 600 mg PO BID PRN 06/04/17 Ibuprofen [Advil] 200 mg PO Q6H PRN 06/04/17 Mag Hydrox/Al Hydrox/Simeth [Mylanta] 30 ml PO ACHS PRN 04/03/18 Magnesium Hydroxide [Milk of Magnesia] 15 ml PO HS PRN 06/04/17 Current Inpatient Medications: Current Inpatient Medications Acetaminophen (Tylenol) 650 mg PO Q6 PRN PRN Reason: PAIN Last Admin: 06/05/17 05:54 Dose: 650 mg Al Hydrox/Mg Hydrox/Simethicone (Mylanta) 30 ml PO ACHS PRN PRN Reason: indigestion Al Hydroxide/Mg Hydroxide (Milk Of Magnesia) 1,200 mg PO HS PRN PRN Reason: Constipation Amlodipine Besylate (Norvasc) 5 mg PO DAILY [facility] Aspirin (Aspirin) 81 mg PO DAILY [facility] Atorvastatin Calcium (Lipitor) 40 mg PO HS [facility] Bisacodyl (Dulcolax) 5 mg PO DAILY [facility] Furosemide (Lasix) 40 mg PO DAILY [facility] Gabapentin (Neurontin) 300 mg PO BID [facility] Sodium Chloride/ Potassium (Chloride/Sodium Chloride) 1,040 mls @ 100 mls/hr IV Q10H [facility] Last Admin: 06/05/17 00:20 Dose: 100 mls/hr Ibuprofen (Advil) 200 mg PO Q6H PRN PRN Reason: PAIN Last Admin: 06/05/17 04:31 Dose: 200 mg Loratadine (Claritin) 10 mg PO DAILY [facility] Metoprolol Tartrate (Lopressor) 25 mg PO DAILY [facility] Omeprazole (Omeprazole) 40 mg PO 0700 [facility] Last Admin: 06/05/17 05:31 Dose: 40 mg Polyethylene Glycol (Miralax) 17 gm PO DAILY [facility] Ropinirole HCl (Requip) 1 mg PO BID [facility] Senna/Docusate Sodium (Senna Plus Tablet) each PO BID [facility] Sennosides (Senokot) 8.6 mg PO 1200 [facility] Sertraline HCl (Zoloft) 50 mg PO DAILY [facility] Spironolactone (Aldactone) 25 mg PO DAILY [facility] Tolterodine Tartrate (Detrol La) 2 mg PO DAILY [facility] Last Admin: 06/05/17 02:55 Dose: Not Given Exam - Exam Vital Signs: Vital Signs (72 hours) 06/05/17 06/05/17 06/05/17 00:55 00:58 02:11 Temperature 98.1 F 96.5 F L 98.2 F Pulse Rate [ 72 77 79 Right Pulse ox] Respiratory 18 16 14 Rate Blood Pressure 131/61 160/67 [Left Arm] Blood Pressure 174/80 [Right Arm] O2 Sat by Pulse 98 98 98 Oximetry 06/05/17 06/05/17 03:53 05:26 Temperature 97.6 F Pulse Rate [ 75 76 Right Pulse ox] Respiratory 16 14 Rate Blood Pressure [Left Arm] Blood Pressure 121/61 [Right Arm] O2 Sat by Pulse 97 Oximetry General: Alert (patient states that her thinking is off some), Oriented to Person, Oriented to Place, Oriented to Time, Cooperative, No acute distress HEENT: Atraumatic Neck: Normal Range of Motion. No: Lymphadenopathy Carotids: WNL Thyroid: WNL Lungs: Clear to auscultation, Normal air movement, Speaks full Sentences. No: Wheezes, Rales, Rhonchi Cardiovascular: Regular rate, Normal S1, Normal S2, No murmurs Peripheral Edema: trace Peripheral Pulses: intact Abdomen: Normal bowel sounds, Soft, No tenderness Integumentary: Normal, [place], Warm, Dry Extremities: No clubbing, No cyanosis, No edema Neurological: Normal speech, Strength Equal Bilat, Normal tone, Sensation intact , Cranial nerves 3-12 NL, Reflexes 2+ Psych/Mental Status: Mental status NL, Mood NL, Appropriate Affect, Intact Judgment Assessment/Plan - Assessment/Plan (1) Hyponatremia Status: Acute (2) CHF (congestive heart failure) Status: Chronic Qualifiers: Heart failure type: unspecified Heart failure chronicity: unspecified Qualified Code(s): I50.9 - Heart failure, unspecified (3) Hypokalemia Status: Acute (4) Essential hypertension Status: Chronic (5) History of lower GI bleeding Status: Resolved VTE Assessment - RISK FACTOR SCORE VTE RISK FACTOR SCORES: AGE OVER 60 YEARS, ANTICIPATED BED CONFINEMENT OR IMMOBILIZATION > 24 HOURS - RISK VTE MODERATE RISK: SCORE OF 2 (RISK PROXIMAL DVT 2-4%) PROPHYAXIS NEEDED
[2017-06-05 08:30] LABS: eGFR (African) > 60; eGFR (Non-African) > 60
[2017-06-05] MEDS ORDERED: GABAPENTIN 300 MG CAPSULE ONE ×2 (08:57→10:47)
[2017-06-05] MEDS ORDERED: SENNOSIDES/DOCUSATE SODIUM 1 EACH TABLET PO SCH (09:00)
[2017-06-05] MEDS ORDERED: GABAPENTIN 100 MG CAPSULE PO SCH (09:00)
[2017-06-05] MEDS ORDERED: FUROSEMIDE 40 MG TABLET PO SCH (09:00)
[2017-06-05] MEDS: METOPROLOL TARTRATE 25 MG TABLET PO SCH (09:01)
[2017-06-05] MEDS: ENOXAPARIN SODIUM 30 MG/0.3 ML DISP.SYRIN SQ SCH (09:02)
[2017-06-05] MEDS: SERTRALINE HCL 50 MG TABLET PO SCH (09:02)
[2017-06-05] MEDS: BISACODYL 5 MG TABLET.DR PO SCH (09:02)
[2017-06-05] MEDS: rOPINIRole HCL 1 MG TABLET PO SCH ×2 (09:02→19:28)
[2017-06-05] MEDS: SPIRONOLACTONE 25 MG TABLET PO SCH (09:02)
[2017-06-05] MEDS: POLYETHYLENE GLYCOL 3350 17 GM POWD.PACK PO SCH (09:03)
[2017-06-05] MEDS: amLODIPine BESYLATE 5 MG TABLET PO SCH (09:03)
[2017-06-05] MEDS: ASPIRIN 81 MG CHEW TAB PO SCH (09:03)
[2017-06-05] MEDS: LORATADINE 10 MG TABLET PO SCH (09:03)
[2017-06-05] MEDS ORDERED: ATORVASTATIN CALCIUM 80 MG TABLET PO ONE (10:46)
[2017-06-05] MEDS: SENNOSIDES 8.6 MG TABLET PO SCH (13:09)
[2017-06-05 14:33] LABS: APPEARANCE,URINE Clear (CLEAR); COLOR,URINE Yellow (YELLOW); OCCULT BLOOD,URINE Trace-intact (NEGATIVE); UROBILINOGEN URINE 0.2 Eu (0.2-1.0)
[2017-06-05] MEDS: GABAPENTIN 300 MG CAPSULE PO SCH (19:28)
[2017-06-05] MEDS: ATORVASTATIN CALCIUM 80 MG TABLET PO SCH (19:28)
[2017-06-05] MEDS: SENNOSIDES/DOCUSATE SODIUM 1 EACH TABLET PO SCH (20:14)
[2017-06-06] MEDS: IBUPROFEN 200 MG TABLET PO PRN (04:05)
[2017-06-06] MEDS: ACETAMINOPHEN 325 MG TABLET PO PRN (04:48)
[2017-06-06] MEDS: OMEPRAZOLE 20 MG CAPSULE.DR PO SCH (06:01)
[2017-06-06] MEDS: 0.9 % SODIUM CHLORIDE 1,000 ML, POTASSIUM CHLORIDE 40 MEQ/NS 40 ML IV SCH ×2 (07:45)
[2017-06-06 08:01] LABS: eGFR (African) > 60; eGFR (Non-African) > 60
--- NOTE | 2017-06-06 08:23 | Inpatient Progress Note ---
Subjective - Required Recertification Statement I anticipate X number of days because-include discharge plan: 1 day - Review of Systems Events since last encounter: Patient is still confused some but is doing better. Breathing is stable. Is starting to feel some stronger. No pedal edema noted. Pulmonary: Denies: Dyspnea, Cough Cardiovascular: Denies: Chest Pain, Palpitations, Paroxysmal Noc. Dyspnea, Light Headedness Gastrointestinal: Denies: Nausea, Vomiting Objective - Exam Vitals and I&O: Vital Signs Temp 96.7 F L 06/06/17 05:00 Pulse 67 06/06/17 05:00 Resp 18 06/06/17 05:00 BP 116/51 06/06/17 05:00 Pulse Ox 99 06/06/17 05:00 Intake & Output 06/05/17 06/05/17 06/06/17 11:59 23:59 11:59 Intake Total 860 2660 800 Output Total 500 200 Balance 860 2160 600 Weight 68.039 kg 67.585 kg Intake: IV 500 2100 800 Left Antecubital 500 Left Hand 2100 800 Oral 360 560 Output: Urine 500 200 Other: Voiding Method Bedside Commode Diaper Diaper # Voids 1 1 General: Alert, Oriented to Person, Cooperative. No: Oriented to Place, Oriented to Time Neck: Supple Lungs: Clear to auscultation, Normal air movement, Speaks full Sentences. No: Wheezes, Rales, Rhonchi Cardiovascular: Regular rate, Normal S1, Normal S2 Abdomen: Normal bowel sounds Extremities: No clubbing, No cyanosis, No edema Skin: Normal, [place], Warm, Dry - Results Results: Laboratory Results WBC 5.70 K/ul (4.00-12.00) 06/05/17 07:30 RBC 3.92 M/ul (3.90-5.20) 06/05/17 07:30 Hgb 12.3 g/dL (12.0-16.0) 06/05/17 07:30 Hct 34.0 % (34.5-46.5) L 06/05/17 07:30 MCV 86.7 fl (80.0-100.0) 06/05/17 07:30 MCH 31.4 pg (28.0-34.0) 06/05/17 07:30 MCHC 36.2 g/dL (30.0-36.0) H 06/05/17 07:30 RDW 13.9 % (11.3-14.3) 06/05/17 07:30 Plt Count 246 K/mm3 (130-400) 06/05/17 07:30 Neut % (Auto) 74.1 % (39.0-79.0) 06/05/17 07:30 Lymph % (Auto) 13.1 % (16.0-50.0) L 06/05/17 07:30 [place] % (Auto) 6.8 % (0.0-11.0) 06/05/17 07:30 Eos % (Auto) 4.5 % (0.0-6.8) 06/05/17 07:30 Baso % (Auto) 0.2 (0.0-1.5) 06/05/17 07:30 Neut # (Auto) 4.2 # k/uL (1.4-7.7) 06/05/17 07:30 Lymph # (Auto) 0.8 # k/uL (0.6-4.0) 06/05/17 07:30 [place] # (Auto) 0.4 # k/uL (0.0-0.9) 06/05/17 07:30 Eos # (Auto) 0.3 # k/uL (0.0-0.6) 06/05/17 07:30 Baso # (Auto) 0.0 # k/uL (0.0-0.5) 06/05/17 07:30 Reactive Lymphs % 1.3 % (0.0-5.0) 06/05/17 07:30 Reactive Lymphs # 0.1 # k/uL (0.0-0.8) 06/05/17 07:30 Sodium 122 mmol/L (136-145) L 06/06/17 06:35 Potassium 4.0 mmol/L (3.5-5.1) 06/06/17 06:35 Chloride 90 mmol/L (98-107) L 06/06/17 06:35 Carbon Dioxide 21 mmol/L (22-30) L 06/06/17 06:35 BUN 10 mg/dL (7-17) 06/06/17 06:35 Creatinine 0.60 mg/dL (0.52-1.04) 06/06/17 06:35 Estimated Creat Clear 82 06/06/17 06:35 Est GFR ( Amer) > 60 (60-) 06/06/17 06:35 Est GFR (Non-Af Amer) > 60 (60-) 06/06/17 06:35 Glucose 82 mg/dL (74-106) 06/06/17 06:35 Calcium 8.3 mg/dL (8.4-10.2) L 06/06/17 06:35 Total Bilirubin 0.8 mg/dL (0.2-1.3) 06/06/17 06:35 AST 61 U/L (15-46) H 06/06/17 06:35 ALT 53 U/L (13-69) 06/06/17 06:35 Alkaline Phosphatase 77 U/L (38-126) 06/06/17 06:35 Creatine Kinase 1000 U/L (30-135) H 06/04/17 23:05 CK-MB (CK-2) 20.1 ng/mL (0.0-5.6) H 06/04/17 23:33 Troponin I < 0.03 ng/mL (0.03-0.06) L 06/04/17 23:05 NT-Pro-B Natriuret Pep 142.9 pg/mL (15.0-450.0) 06/05/17 07:30 Total Protein 5.7 g/dL (6.3-8.2) L 06/06/17 06:35 Albumin 3.3 g/dL (3.5-5.0) L 06/06/17 06:35 Urine Color Yellow (YELLOW) 06/05/17 13:57 Urine Appearance Clear (CLEAR) 06/05/17 13:57 Urine pH 7.0 (5.0 - 8.0) 06/05/17 13:57 Ur Specific [place] 1.015 (1.010-1.030) 06/05/17 13:57 Urine Protein Negative mg/dL (NEGATIVE) 06/05/17 13:57 Urine Ketones Negative mg/dL (NEGATIVE) 06/05/17 13:57 Urine Occult Blood Trace-intact (NEGATIVE) 06/05/17 13:57 Urine Nitrite Negative (NEGATIVE) 06/05/17 13:57 Urine Bilirubin Negative (NEGATIVE) 06/05/17 13:57 Urine Urobilinogen 0.2 Eu (0.2-1.0) 06/05/17 13:57 Ur Leukocyte Esterase 2+ (NEGATIVE) H 06/05/17 13:57 Urine RBC 0-2 (0-2 HPF) 06/05/17 13:57 Urine WBC 2-5 (0-5 HPF) 06/05/17 13:57 Ur Squamous Epith Cells Few (NEG-FEW) 06/05/17 13:57 Urine Bacteria Few (NEGATIVE) H 06/05/17 13:57 Urine Glucose Negative mg/dL (NEGATIVE) 06/05/17 13:57 Assessment/Plan - Assessment/Plan (1) Hyponatremia Status: Acute Current Visit: Yes Assessment: Na improved to 122 Plan: I will switch IV fluids and continue to monitor. Will need to monitor patient's weight and BNP (2) Hypokalemia Status: Acute Current Visit: Yes Assessment: resolved, potassium is 4.0. Plan: Will stop supplemental K in IV (3) CHF (congestive heart failure) Status: Chronic Current Visit: No Qualifiers: Heart failure type: unspecified Heart failure chronicity: unspecified Qualified Code(s): I50.9 - Heart failure, unspecified Assessment: Appears to be stable, will get BNP in AM and monitor weight (4) Essential hypertension Status: Chronic Current Visit: No Assessment: stable on current medications
[2017-06-06] MEDS: SULFAMETHOXAZOLE/TRIMETHOPRIM 1 EACH TABLET PO SCH ×2 (08:54→20:05)
[2017-06-06] MEDS: SPIRONOLACTONE 25 MG TABLET PO SCH (08:54)
[2017-06-06] MEDS: TOLTERODINE TARTRATE 2 MG CAP.ER.24H PO SCH (08:54)
[2017-06-06] MEDS: ASPIRIN 81 MG CHEW TAB PO SCH (08:55)
[2017-06-06] MEDS: BISACODYL 5 MG TABLET.DR PO SCH (08:56)
[2017-06-06] MEDS: LORATADINE 10 MG TABLET PO SCH (08:56)
[2017-06-06] MEDS: ENOXAPARIN SODIUM 30 MG/0.3 ML DISP.SYRIN SQ SCH (08:57)
[2017-06-06] MEDS: METOPROLOL TARTRATE 25 MG TABLET PO SCH (08:57)
[2017-06-06] MEDS: POLYETHYLENE GLYCOL 3350 17 GM POWD.PACK PO SCH (08:57)
[2017-06-06] MEDS: GABAPENTIN 300 MG CAPSULE PO SCH ×2 (08:57→20:06)
[2017-06-06] MEDS: amLODIPine BESYLATE 5 MG TABLET PO SCH (08:57)
[2017-06-06] MEDS: SERTRALINE HCL 50 MG TABLET PO SCH (08:58)
[2017-06-06] MEDS: rOPINIRole HCL 1 MG TABLET PO SCH ×2 (08:58→20:07)
[2017-06-06] MEDS: SENNOSIDES/DOCUSATE SODIUM 1 EACH TABLET PO SCH ×2 (08:58→20:07)
[2017-06-06] MEDS: SENNOSIDES 8.6 MG TABLET PO SCH (12:16)
[2017-06-06] MEDS: ATORVASTATIN CALCIUM 80 MG TABLET PO SCH (20:05)
[2017-06-06] MEDS: 0.9 % SODIUM CHLORIDE 1,000 ML IV SCH (20:24)
[2017-06-07] MEDS: OMEPRAZOLE 20 MG CAPSULE.DR PO SCH (05:22)
[2017-06-07] MEDS: 0.9 % SODIUM CHLORIDE 1,000 ML IV SCH (05:59)
[2017-06-07] MEDS: SPIRONOLACTONE 25 MG TABLET PO SCH (09:01)
[2017-06-07] MEDS: ASPIRIN 81 MG CHEW TAB PO SCH (09:01)
[2017-06-07] MEDS: SULFAMETHOXAZOLE/TRIMETHOPRIM 1 EACH TABLET PO SCH ×2 (09:01→19:55)
[2017-06-07] MEDS: LORATADINE 10 MG TABLET PO SCH (09:02)
[2017-06-07] MEDS: TOLTERODINE TARTRATE 2 MG CAP.ER.24H PO SCH (09:02)
[2017-06-07] MEDS: GABAPENTIN 300 MG CAPSULE PO SCH ×2 (09:03→19:54)
[2017-06-07] MEDS: rOPINIRole HCL 1 MG TABLET PO SCH ×2 (09:03→19:54)
[2017-06-07] MEDS: amLODIPine BESYLATE 5 MG TABLET PO SCH (09:03)
[2017-06-07] MEDS: SERTRALINE HCL 50 MG TABLET PO SCH (09:03)
[2017-06-07] MEDS: METOPROLOL TARTRATE 25 MG TABLET PO SCH (09:03)
[2017-06-07] MEDS: ENOXAPARIN SODIUM 30 MG/0.3 ML DISP.SYRIN SQ SCH (09:03)
[2017-06-07] MEDS: SENNOSIDES/DOCUSATE SODIUM 1 EACH TABLET PO SCH ×2 (09:03→19:54)
[2017-06-07] MEDS: POLYETHYLENE GLYCOL 3350 17 GM POWD.PACK PO SCH (09:03)
[2017-06-07] MEDS: BISACODYL 5 MG TABLET.DR PO SCH (09:05)
[2017-06-07 09:54] LABS: eGFR (African) > 60; eGFR (Non-African) > 60
[2017-06-07] MEDS: SENNOSIDES 8.6 MG TABLET PO SCH (11:42)
--- NOTE | 2017-06-07 11:42 | Discharge Summary ---
Discharge Summary - Discharge Sumary History of Present Illness: Patient is a 89-year-old white female who is not been feeling well. Patient is been having some problems with congestive heart failure increased peel edema. Patient has been placed on several diuretics to try to help with her peel edema. Patient did have blood work today which showed a markedly decreased sodium level to 109. Patient was subsequently admitted to the hospital for further evaluation. Home Medications: Ambulatory Orders Medication Instructions Recorded Aspirin [Senait] 81 mg PO DAILY 05/08/17 Atorvastatin Calcium [Lipitor] 40 mg PO HS 05/08/17 Bisacodyl 5 mg PO DAILY 05/08/17 Furosemide [Lasix] 40 mg PO DAILY 05/08/17 Gabapentin 300 mg PO BID 05/08/17 Metoprolol Tartrate [Lopressor] 25 mg PO DAILY 05/08/17 Omeprazole [Prilosec] 40 mg PO DAILY 05/08/17 Polyethylene Glycol 3350 [Miralax] 17 gm PO DAILY 05/08/17 Vit No.124/Iron/FA 1 tab PO DAILY 05/08/17 [ Vitamin Tablet] Sennosides [Senna] 8.6 mg PO 1200 05/08/17 Sennosides/Docusate Sodium 1 tab PO BID 05/08/17 [Senna-Docusate Sodium Tablet] Sertraline HCl [Zoloft] 50 mg PO DAILY 05/08/17 Spironolactone [Aldactone] 25 mg PO DAILY 05/08/17 Trospium Chloride [Sanctura] 20 mg PO DAILY 05/08/17 amLODIPine BESYLATE [Norvasc] 5 mg PO DAILY 05/08/17 Acetaminophen [Tylenol] 650 mg PO Q6 PRN 06/04/17 Guaifenesin [Mucinex] 600 mg PO BID PRN 06/04/17 Ibuprofen [Advil] 200 mg PO Q6H PRN 06/04/17 Mag Hydrox/Al Hydrox/Simeth 30 ml PO ACHS PRN 06/04/17 [Mylanta] Magnesium Hydroxide [Milk of 15 ml PO HS PRN 06/04/17 Magnesia] Sulfamethoxazole/Trimethoprim 1 each PO BID #10 tablet 06/07/17 [Bactrim DS] Consultations this Visit: None Procedures this Visit: None Allergies/Adverse Reactions: Allergies Allergy/AdvReac Type Severity Reaction Status Date / Time No Known Allergies Allergy Verified 06/04/17 22:55 Discharge Summary: Patient was started on IV fluids of normal saline. It was felt that the patient was dehydrated some. With this her sodium level did slowly improve. At the time to discharge it was 129 and the patient was feeling much better. On admission patient was noted to have some hypokalemia. Potassium was 2.8. Patient was given supplemental potassium and at the time to discharge its had improved to 3.9. Patient did start having some increase pulmonary congestion with the IV fluids. Patient was restarted on Lasix therapy. Patient hypertension remain stable on her own medications. At the time to discharge it was felt that the patient can be further monitored on an outpatient basis and she was discharged in stable condition. - Final Diagnosis (1) Hyponatremia Problems: improved (2) Hypokalemia Problems: improved (3) CHF (congestive heart failure) Problems: stable (4) Essential hypertension Problems: stable on home meds
--- NOTE | 2017-06-07 13:17 | Inpatient Progress Note ---
Subjective - Required Recertification Statement I anticipate X number of days because-include discharge plan: 1 day - Review of Systems Events since last encounter: Patient states that she is feeling some better, still feeling weak. Has been up ambulating some. Pulmonary: Denies: Dyspnea, Cough Cardiovascular: Denies: Chest Pain, Palpitations, Orthopnea Objective - Exam Vitals and I&O: Vital Signs Temp 97.4 F L 06/07/17 08:33 Pulse 67 06/07/17 08:33 Resp 18 06/07/17 08:33 BP 136/64 06/07/17 08:33 Pulse Ox 98 06/07/17 08:33 Intake & Output 06/06/17 06/07/17 06/07/17 23:59 11:59 23:59 Intake Total 2990 1580 240 Output Total 400 800 Balance 2590 780 240 Weight 67.585 kg 68.039 kg Intake: IV 2400 1000 Left Hand 2400 1000 Oral 590 580 240 Output: Urine 400 800 Other: Voiding Method Toilet Toilet # Voids 2 1 General: Alert, Oriented to Person, Oriented to Place, Cooperative Neck: Supple, No JVD Lungs: Clear to auscultation, Normal air movement, Speaks full Sentences. No: Wheezes, Rales, Rhonchi Cardiovascular: Regular rate, Normal S1, Normal S2, No murmurs Abdomen: Normal bowel sounds, Soft, No tenderness Extremities: No clubbing, Other (trace edema) Skin: Normal, [place], Warm, Dry - Results Results: Laboratory Results WBC 5.70 K/ul (4.00-12.00) 06/05/17 07:30 RBC 3.92 M/ul (3.90-5.20) 06/05/17 07:30 Hgb 12.3 g/dL (12.0-16.0) 06/05/17 07:30 Hct 34.0 % (34.5-46.5) L 06/05/17 07:30 MCV 86.7 fl (80.0-100.0) 06/05/17 07:30 MCH 31.4 pg (28.0-34.0) 06/05/17 07:30 MCHC 36.2 g/dL (30.0-36.0) H 06/05/17 07:30 RDW 13.9 % (11.3-14.3) 06/05/17 07:30 Plt Count 246 K/mm3 (130-400) 06/05/17 07:30 Neut % (Auto) 74.1 % (39.0-79.0) 06/05/17 07:30 Lymph % (Auto) 13.1 % (16.0-50.0) L 06/05/17 07:30 [place] % (Auto) 6.8 % (0.0-11.0) 06/05/17:30 Eos % (Auto) 4.5 % (0.0-6.8) 06/05/17 07:30 Baso % (Auto) 0.2 (0.0-1.5) 06/05/17: Neut # (Auto) 4.2 # k/uL (1.4-7.7) 06/05/17 07:30 Lymph # (Auto) 0.8 # k/uL (0.6-4.0) 06/05/17:30 [place] # (Auto) 0.4 # k/uL (0.0-0.9) 06/05/17 07:30 Eos # (Auto) 0.3 # k/uL (0.0-0.6) 06/05/17 07:30 Baso # (Auto) 0.0 # k/uL (0.0-0.5) 06/05/17 07:30 Reactive Lymphs % 1.3 % (0.0-5.0) 06/05/17 07:30 Reactive Lymphs # 0.1 # k/uL (0.0-0.8) 06/05/17 07:30 Sodium 126 mmol/L (136-145) L 06/07/17 09:25 Potassium 3.8 mmol/L (3.5-5.1) 06/07/17 09:25 Chloride 99 mmol/L (98-107) 06/07/17 09:25 Carbon Dioxide 15 mmol/L (22-30) L 06/07/17 09:25 BUN 6 mg/dL (7-17) L 06/07/17 09:25 Creatinine 0.70 mg/dL (0.52-1.04) 06/07/17 09:25 Estimated Creat Clear 71 06/07/17 09:25 Est GFR ( Amer) > 60 (60-) 06/07/17 09:25 Est GFR (Non-Af Amer) > 60 (60-) 06/07/17 09:25 Glucose 113 mg/dL (74-106) H 06/07/17 09:25 Calcium 8.7 mg/dL (8.4-10.2) 06/07/17 09:25 Total Bilirubin 0.8 mg/dL (0.2-1.3) 06/07/17 09:25 AST 55 U/L (15-46) H 06/07/17 09:25 ALT 40 U/L (13-69) 06/07/17 09:25 Alkaline Phosphatase 85 U/L (38-126) 06/07/17 09:25 Creatine Kinase 1000 U/L (30-135) H 06/04/17 23:05 CK-MB (CK-2) 20.1 ng/mL (0.0-5.6) H 06/04/17 23:33 Troponin I < 0.03 ng/mL (0.03-0.06) L 06/04/17 23:05 NT-Pro-B Natriuret Pep 663.4 pg/mL (15.0-450.0) H 06/07/17 09:25 Total Protein 6.6 g/dL (6.3-8.2) 06/07/17 09:25 Albumin 3.7 g/dL (3.5-5.0) 06/07/17 09:25 Urine Color Yellow (YELLOW) 06/05/17 13:57 Urine Appearance Clear (CLEAR) 06/05/17 13:57 Urine pH 7.0 (5.0 - 8.0) 06/05/17 13:57 Ur Specific [place] 1.015 (1.010-1.030) 06/05/17 13:57 Urine Protein Negative mg/dL (NEGATIVE) 06/05/17 13:57 Urine Ketones Negative mg/dL (NEGATIVE) 06/05/17 13:57 Urine Occult Blood Trace-intact (NEGATIVE) 06/05/17 13:57 Urine Nitrite Negative (NEGATIVE) 06/05/17 13:57 Urine Bilirubin Negative (NEGATIVE) 06/05/17 13:57 Urine Urobilinogen 0.2 Eu (0.2-1.0) 06/05/17 13:57 Ur Leukocyte Esterase 2+ (NEGATIVE) H 06/05/17 13:57 Urine RBC 0-2 (0-2 HPF) 06/05/17 13:57 Urine WBC 2-5 (0-5 HPF) 06/05/17 13:57 Ur Squamous Epith Cells Few (NEG-FEW) 06/05/17 13:57 Urine Bacteria Few (NEGATIVE) H 06/05/17 13:57 Urine Glucose Negative mg/dL (NEGATIVE) 06/05/17 13:57 Assessment/Plan - Assessment/Plan (1) Hyponatremia Status: Acute Current Visit: Yes Assessment: improved to 126. Slowly improving with IV fluids. Watching for CHF symptoms. BUN and creatinine have normalized, dehydration improved. (2) Hypokalemia Status: Acute Current Visit: Yes Assessment: stable (3) CHF (congestive heart failure) Status: Chronic Current Visit: No Qualifiers: Heart failure type: unspecified Heart failure chronicity: unspecified Qualified Code(s): I50.9 - Heart failure, unspecified Assessment: BNP is increased some. Trace Edema. Will start lasix back up. (4) Essential hypertension Status: Chronic Current Visit: No Assessment: stable
[2017-06-07] MEDS ORDERED: FUROSEMIDE 40 MG TABLET PO ONE (13:22)
[2017-06-07] MEDS: ATORVASTATIN CALCIUM 80 MG TABLET PO SCH (19:54)
[2017-06-07] MEDS: ACETAMINOPHEN 325 MG TABLET PO PRN (19:56)
[2017-06-08] MEDS: OMEPRAZOLE 20 MG CAPSULE.DR PO SCH (05:53)
[2017-06-08 06:55] LABS: eGFR (African) > 60; eGFR (Non-African) > 60
[2017-06-08] MEDS: ASPIRIN 81 MG CHEW TAB PO SCH (09:26)
[2017-06-08] MEDS: SPIRONOLACTONE 25 MG TABLET PO SCH (09:26)
[2017-06-08] MEDS: amLODIPine BESYLATE 5 MG TABLET PO SCH (09:26)
[2017-06-08] MEDS: LORATADINE 10 MG TABLET PO SCH (09:26)
[2017-06-08] MEDS: SULFAMETHOXAZOLE/TRIMETHOPRIM 1 EACH TABLET PO SCH ×2 (09:26→19:44)
[2017-06-08] MEDS: METOPROLOL TARTRATE 25 MG TABLET PO SCH (09:27)
[2017-06-08] MEDS: TOLTERODINE TARTRATE 2 MG CAP.ER.24H PO SCH (09:27)
[2017-06-08] MEDS: POLYETHYLENE GLYCOL 3350 17 GM POWD.PACK PO SCH (09:27)
[2017-06-08] MEDS: ENOXAPARIN SODIUM 30 MG/0.3 ML DISP.SYRIN SQ SCH (09:27)
[2017-06-08] MEDS: SENNOSIDES/DOCUSATE SODIUM 1 EACH TABLET PO SCH ×2 (09:28→19:44)
[2017-06-08] MEDS: rOPINIRole HCL 1 MG TABLET PO SCH ×2 (09:28→19:43)
[2017-06-08] MEDS: SERTRALINE HCL 50 MG TABLET PO SCH (09:28)
[2017-06-08] MEDS: GABAPENTIN 300 MG CAPSULE PO SCH ×2 (09:28→19:44)
[2017-06-08] MEDS: FUROSEMIDE 40 MG TABLET PO SCH (09:30)
[2017-06-08] MEDS: BISACODYL 5 MG TABLET.DR PO SCH (09:30)
[2017-06-08] MEDS: SENNOSIDES 8.6 MG TABLET PO SCH (12:30)
[2017-06-08] MEDS: ATORVASTATIN CALCIUM 80 MG TABLET PO SCH (19:44)
[2017-06-09] MEDS: OMEPRAZOLE 20 MG CAPSULE.DR PO SCH (05:58)
[2017-06-09 07:44] LABS: eGFR (African) > 60; eGFR (Non-African) > 60
[2017-06-09] MEDS: rOPINIRole HCL 1 MG TABLET PO SCH (08:07)
[2017-06-09] MEDS: ASPIRIN 81 MG CHEW TAB PO SCH (08:07)
[2017-06-09] MEDS: SULFAMETHOXAZOLE/TRIMETHOPRIM 1 EACH TABLET PO SCH (08:07)
[2017-06-09] MEDS: GABAPENTIN 300 MG CAPSULE PO SCH (08:07)
[2017-06-09] MEDS: SENNOSIDES/DOCUSATE SODIUM 1 EACH TABLET PO SCH (08:07)
[2017-06-09] MEDS: amLODIPine BESYLATE 5 MG TABLET PO SCH (08:07)
[2017-06-09] MEDS: LORATADINE 10 MG TABLET PO SCH (08:07)
[2017-06-09] MEDS: FUROSEMIDE 40 MG TABLET PO SCH (08:07)
[2017-06-09] MEDS: POLYETHYLENE GLYCOL 3350 17 GM POWD.PACK PO SCH (08:07)
[2017-06-09] MEDS: SPIRONOLACTONE 25 MG TABLET PO SCH (08:07)
[2017-06-09] MEDS: ENOXAPARIN SODIUM 30 MG/0.3 ML DISP.SYRIN SQ SCH (08:07)
[2017-06-09] MEDS: BISACODYL 5 MG TABLET.DR PO SCH (08:07)
[2017-06-09] MEDS: TOLTERODINE TARTRATE 2 MG CAP.ER.24H PO SCH (08:07)
[2017-06-09] MEDS: SERTRALINE HCL 50 MG TABLET PO SCH (08:07)
[2017-06-09] MEDS: METOPROLOL TARTRATE 25 MG TABLET PO SCH (08:07)
[2017-06-09] MEDS: SENNOSIDES 8.6 MG TABLET PO SCH (11:08)
--- NOTE | 2017-06-09 12:57 | Inpatient Progress Note ---
Subjective - Required Recertification Statement I anticipate X number of days because-include discharge plan: 1 day - Review of Systems Events since last encounter: Patient states that she is feeling better. Patient denies any increasing shortness of breath dyspnea. Oral intake is better. Appetite has improved. Patient denies any chest pain or chest pressure. Objective - Exam Vitals and I&O: Vital Signs Temp 96.8 F L 06/09/17 08:51 Pulse 67 06/09/17 08:51 Resp 18 06/09/17 08:51 BP 130/70 06/09/17 08:51 Pulse Ox 93 06/09/17 08:51 Intake & Output 06/08/17 06/09/17 06/09/17 23:59 11:59 23:59 Intake Total 1735 840 120 Balance 1735 840 120 Intake: Oral 1735 840 120 Other: Voiding Method Bedside Commode Bedside Commode # Voids 3 3 2 General: Alert, Oriented to Person, Oriented to Place, Oriented to Time, Cooperative, No acute distress Neck: Supple, No JVD Lungs: Clear to auscultation, Normal air movement, Speaks full Sentences. No: Respiratory Distress, Wheezes, Rales, Rhonchi Cardiovascular: Regular rate, Normal S1, Normal S2 Abdomen: Normal bowel sounds, Soft Skin: Normal, [place], Warm, Other (mild edema) Psych/Mental Status: Mental status NL, Mood NL, Appropriate Affect, Intact Judgment - Results Results: Laboratory Results WBC 5.70 K/ul (4.00-12.00) 06/05/17 07:30 RBC 3.92 M/ul (3.90-5.20) 06/05/17 07:30 Hgb 12.3 g/dL (12.0-16.0) 06/05/17 07:30 Hct 34.0 % (34.5-46.5) L 06/05/17 07:30 MCV 86.7 fl (80.0-100.0) 06/05/17 07:30 MCH 31.4 pg (28.0-34.0) 06/05/17 07:30 MCHC 36.2 g/dL (30.0-36.0) H 06/05/17 07:30 RDW 13.9 % (11.3-14.3) 06/05/17 07:30 Plt Count 246 K/mm3 (130-400) 06/05/17 07:30 Neut % (Auto) 74.1 % (39.0-79.0) 06/05/17 07:30 Lymph % (Auto) 13.1 % (16.0-50.0) L 06/05/17 07:30 [place] % (Auto) 6.8 % (0.0-11.0) 06/05/17 07:30 Eos % (Auto) 4.5 % (0.0-6.8) 06/05/17 07:30 Baso % (Auto) 0.2 (0.0-1.5) 06/05/17 07:30 Neut # (Auto) 4.2 # k/uL (1.4-7.7) 06/05/17 07:30 Lymph # (Auto) 0.8 # k/uL (0.6-4.0) 06/05/17 07:30 [place] # (Auto) 0.4 # k/uL (0.0-0.9) 06/05/17 07:30 Eos # (Auto) 0.3 # k/uL (0.0-0.6) 06/05/17 07:30 Baso # (Auto) 0.0 # k/uL (0.0-0.5) 06/05/17 07:30 Reactive Lymphs % 1.3 % (0.0-5.0) 06/05/17 07:30 Reactive Lymphs # 0.1 # k/uL (0.0-0.8) 06/05/17 07:30 Sodium 129 mmol/L (136-145) L 06/09/17 07:30 Potassium 3.9 mmol/L (3.5-5.1) 06/09/17 07:30 Chloride 95 mmol/L (98-107) L 06/09/17 07:30 Carbon Dioxide 20 mmol/L (22-30) L 06/09/17 07:30 BUN 8 mg/dL (7-17) 06/09/17 07:30 Creatinine 0.90 mg/dL (0.52-1.04) 06/09/17 07:30 Estimated Creat Clear 55 06/09/17 07:30 Est GFR ( Amer) > 60 (60-) 06/09/17 07:30 Est GFR (Non-Af Amer) > 60 (60-) 06/09/17 07:30 Glucose 91 mg/dL (74-106) 06/09/17 07:30 Calcium 9.5 mg/dL (8.4-10.2) 06/09/17 07:30 Total Bilirubin 0.8 mg/dL (0.2-1.3) 06/07/17 09:25 AST 55 U/L (15-46) H 06/07/17 09:25 ALT 40 U/L (13-69) 06/07/17 09:25 Alkaline Phosphatase 85 U/L (38-126) 06/07/17 09:25 Creatine Kinase 1000 U/L (30-135) H 06/04/17 23:05 CK-MB (CK-2) 20.1 ng/mL (0.0-5.6) H 06/04/17 23:33 Troponin I < 0.03 ng/mL (0.03-0.06) L 06/04/17 23:05 NT-Pro-B Natriuret Pep 663.4 pg/mL (15.0-450.0) H 06/07/17 09:25 Total Protein 6.6 g/dL (6.3-8.2) 06/07/17 09:25 Albumin 3.7 g/dL (3.5-5.0) 06/07/17 09:25 Urine Color Yellow (YELLOW) 06/05/17 13:57 Urine Appearance Clear (CLEAR) 06/05/17 13:57 Urine pH 7.0 (5.0 - 8.0) 06/05/17 13:57 Ur Specific [place] 1.015 (1.010-1.030) 06/05/17 13:57 Urine Protein Negative mg/dL (NEGATIVE) 06/05/17 13:57 Urine Ketones Negative mg/dL (NEGATIVE) 06/05/17 13:57 Urine Occult Blood Trace-intact (NEGATIVE) 06/05/17 13:57 Urine Nitrite Negative (NEGATIVE) 06/05/17 13:57 Urine Bilirubin Negative (NEGATIVE) 06/05/17 13:57 Urine Urobilinogen 0.2 Eu (0.2-1.0) 06/05/17 13:57 Ur Leukocyte Esterase 2+ (NEGATIVE) H 06/05/17 13:57 Urine RBC 0-2 (0-2 HPF) 06/05/17 13:57 Urine WBC 2-5 (0-5 HPF) 06/05/17 13:57 Ur Squamous Epith Cells Few (NEG-FEW) 06/05/17 13:57 Urine Bacteria Few (NEGATIVE) H 06/05/17 13:57 Urine Osmolality 253 mOsmol/kg 06/05/17 16:30 Urine Glucose Negative mg/dL (NEGATIVE) 06/05/17 13:57 Assessment/Plan - Assessment/Plan (1) Hyponatremia Status: Acute Assessment: Patient sodium has improved to 123. (2) Hypokalemia Status: Acute Assessment: Potassium is stable a 4.0. (3) CHF (congestive heart failure) Status: Chronic Qualifiers: Heart failure type: unspecified Heart failure chronicity: unspecified Qualified Code(s): I50.9 - Heart failure, unspecified Assessment: Appears to be stable at this time. (4) Essential hypertension Status: Chronic Assessment: Stable home medications.
[2017-06-09 13:47] VITALS: BP 130/54
== END 2017-06-09 13:45 | DRG 292 ==
LOC: ED 22:34 → SOUTH 06-05 00:48
PROVIDERS: ADMIT Family Medicine; ATTEND Family Medicine
DX: I50.9 Heart failure, unspecified (principal); E87.1 Hypo-osmolality and hyponatremia; M62.82 Rhabdomyolysis; E87.6 Hypokalemia; E86.0 Dehydration; I10 Essential (primary) hypertension
CPT/HCPCS: 36415; 71045; 74018; 80048; 80053; 81002; 82550; 82553; 83880; 83930; 83935; 84484; 85025; 93005; A9270; J1650; J3480; J7030; J7060; 96360; 99222; 99232; 99238; 99284; S1016

== ENCOUNTER 2017-09-11 07:33 | Inpatient (IN) | payer MEDICARE, OTHER ==
[2017-09-11] MEDS ORDERED: MAGNESIUM HYDROXIDE 400 MG/5 ML 30ML UDC PO PRN (07:54)
[2017-09-11] MEDS ORDERED: MAG HYDROX/ALUMINUM HYD/SIMETH 30 ML UDC PO PRN (07:54)
[2017-09-11] MEDS ORDERED: 0.9 % SODIUM CHLORIDE 1,000 ML IV SCH (08:00)
--- NOTE | 2017-09-11 09:59 | History and Physical Report ---
History of Present Illnes - History of Present Illness Reason for Visit: hyponatremia History of Present Illness: 87-year-old white female from [facility] who is had chronic problems with peel edema. Patient has had we been in her legs recently from the peel edema. Patient is on Lasix therapy. Recently was started on xeroxing the try to help with the edema. When recheck in patients electrolytes today it was noted that she was markedly hyponatremia and hypokalemic. Patient had an elevated BUN and creatinine. It was felt that she had a component of dehydration. Patient was subsequently admitted to the hospital for further care and evaluation. 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 Parkinson's disease) Psych: Depression Musculoskeletal: Osteoarthritis, Other (spinal stenosis) - Past Surgical History Past Surgical History: None - Past Social History Smoke: No Alcohol: None Drugs: None Lives: Senior Living ([facility]) Domestic Violence: Negative - Health Maintenance Health Maintenance: Influenza Vaccine, Pneumococcal Vaccine Influenza Vaccine: Current for this Influenza Season Pneumonia Vaccine: Yes Resuscitation Status: Resusciation Status Resuscitation Status Do Not Resuscitate,Full Code - Unable to Obtain History Unable to Obtain: No Review of Systems - Review of Systems Constitutional: negative: Fever, Chills Eyes: negative: vision change ENT: negative: Ear Pain, Ear Discharge, Nose Pain, Nose Discharge, Nose Congestion, Mouth Pain, Mouth Swelling, Throat Pain, Throat Swelling Respiratory: Shortness of Breath (mild). negative: Cough, Dry, Hemoptysis, SOB with Excertion, Pleuritic Pain Cardiovascular: negative: Chest Pain, Palpitations Gastrointestinal: negative: Nausea, Vomiting, Abdominal Pain, Diarrhea, Constipation, Melena, Hematochezia Genitourinary: negative: Dysuria, Frequency, Incontinence, Hematuria Musculoskeletal: Shoulder Pain, Arm Pain, Back Pain. negative: Neck Pain Skin: negative: Rash Neurological: Confusion (mild). negative: Weakness, Numbness, Incoordination, Change in Speech - Medications/Allergies Allergies/Adverse Reactions: Allergies Allergy/AdvReac Type Severity Reaction Status Date / Time No Known Allergies Allergy Verified 06/04/17 22:55 Current Inpatient Medications: Current Inpatient Medications Acetaminophen (Tylenol) 650 mg PO Q6 PRN PRN Reason: PAIN Al Hydroxide/Mg Hydroxide (Milk Of Magnesia) 1,200 mg PO HS PRN PRN Reason: Constipation Amlodipine Besylate (Norvasc) 5 mg PO DAILY [facility] Aspirin (Aspirin) 81 mg PO DAILY [facility] Atorvastatin Calcium (Lipitor) 40 mg PO HS [facility] Bisacodyl (Dulcolax) 5 mg PO DAILY [facility] Enoxaparin Sodium (Lovenox) 30 mg SQ QD [facility] Stop: 09/24/17 08:01 Gabapentin (Neurontin) 300 mg PO BID [facility] Sodium Chloride (Normal Saline) 1,000 mls @ 125 mls/hr IV Q10H [facility] Ibuprofen (Advil) 200 mg PO Q6H PRN PRN Reason: PAIN Metoprolol Tartrate (Lopressor) 25 mg PO DAILY [facility] Polyethylene Glycol (Miralax) 17 gm PO DAILY [facility] Sennosides (Senokot) 8.6 mg PO 1200 [facility] Sertraline HCl (Zoloft) 50 mg PO DAILY [facility] Exam - Exam General: Alert, Oriented to Person, Oriented to Place, Oriented to Time, Cooperative, No acute distress HEENT: Atraumatic, PERRLA, EOMI, Mouth Mucous membr. moist/[place], Nose Mucous membr. moist/[place] Neck: Normal Range of Motion Carotids: WNL Thyroid: WNL Lungs: Clear to auscultation, Normal air movement, Speaks full Sentences Cardiovascular: Regular rate, Normal S1, Normal S2, No murmurs Abdomen: Normal bowel sounds, Soft, No tenderness, No hepatospenomegaly, No masses Integumentary: Normal, [place], Warm, Dry, Erythema (mild weeping to the lower extremiteis) Extremities: No clubbing, No cyanosis, Normal pulses, Other (trace edema to the lower extrmities.) Neurological: Normal gait, Normal speech, Strength Equal Bilat, Normal tone, Sensation intact, Cranial nerves 3-12 NL, Reflexes 2+ Psych/Mental Status: Mood NL, Appropriate Affect. No: Mental status NL ( confused), Intact Judgment (confused some) Assessment/Plan - Assessment/Plan (1) Hyponatremia Status: Acute Current Visit: No Assessment: Patient will be started on normal saline with potassium. Will try to slowly corrected patient hyponatremia. Patient will be taken off of her diuretics. Patient will be placed on fluids restrictions until we can get her sodium level up a little bit higher. (2) Dehydration Status: Acute Current Visit: No Assessment: Patient will be rehydrated with normal saline. (3) Anemia Status: Chronic Current Visit: No Qualifiers: Assessment: Hemoglobin is 11.0. I do anticipate that this will drop some red rehydration. (4) CHF (congestive heart failure) Status: Chronic Current Visit: No Qualifiers: Heart failure type: unspecified Heart failure chronicity: unspecified Qualified Code(s): I50.9 - Heart failure, unspecified Assessment: Patient will be watch for signs of congestive heart failure since we are rehydrating her with normal saline. (5) Essential hypertension Status: Chronic Current Visit: No Assessment: Patient will be continued on home medications. VTE Assessment - RISK FACTOR SCORE VTE RISK FACTOR SCORES: AGE OVER 60 YEARS, ANTICIPATED BED CONFINEMENT OR IMMOBILIZATION > 24 HOURS
[2017-09-11 10:11] LABS: BASOPHILS % 0.2 (0.0-1.5); EOSINOPHILS % 2.8 % (0.0-6.8); MEAN CORPUSCULAR HEMOGLOBIN 31.2 pg (28.0-34.0); MEAN CORPUSCULAR VOLUME 89.4 fl (80.0-100.0); MONOCYTES % 5.6 % (0.0-11.0); NEUTROPHILS # 4.3 # k/uL (1.4-7.7)
[2017-09-11 10:29] VITALS: BMI 28.3
[2017-09-11] MEDS: ENOXAPARIN SODIUM 30 MG/0.3 ML DISP.SYRIN SQ SCH (10:29)
[2017-09-11] MEDS: ASPIRIN 81 MG CHEW TAB PO SCH (10:29)
[2017-09-11] MEDS: POLYETHYLENE GLYCOL 3350 17 GM POWD.PACK PO SCH (10:30)
[2017-09-11] MEDS: METOPROLOL TARTRATE 25 MG TABLET PO SCH (10:30)
[2017-09-11] MEDS: GABAPENTIN 100 MG CAPSULE PO SCH ×2 (10:30→20:05)
[2017-09-11] MEDS: BISACODYL 5 MG TABLET.DR PO SCH (10:30)
[2017-09-11] MEDS: SERTRALINE HCL 50 MG TABLET PO SCH (10:31)
[2017-09-11] MEDS: amLODIPine BESYLATE 5 MG TABLET PO SCH (10:31)
[2017-09-11 10:45] LABS: eGFR (African) > 60; eGFR (Non-African) > 60
[2017-09-11] MEDS ORDERED: 0.9 % SODIUM CHLORIDE 1,000 ML with POTASSIUM CHLORIDE 40 MEQ IV SCH ×2 (11:33)
[2017-09-11] MEDS ORDERED: ATORVASTATIN CALCIUM 80 MG TABLET PO ONE (12:55)
[2017-09-11] MEDS: POTASSIUM CHLORIDE 20 MEQ TABLET.ER PO SCH ×2 (13:19→17:05)
[2017-09-11] MEDS: SENNOSIDES 8.6 MG TABLET PO SCH (13:19)
[2017-09-11] MEDS: ACETAMINOPHEN 325 MG TABLET PO PRN ×2 (14:15→20:05)
[2017-09-11 19:24] LABS: eGFR (African) > 60; eGFR (Non-African) > 60
[2017-09-11] MEDS: ATORVASTATIN CALCIUM 80 MG TABLET PO SCH (20:05)
[2017-09-11] MEDS ORDERED: 0.9 % SODIUM CHLORIDE 1,000 ML IV ONE (21:29)
[2017-09-11] MEDS: 0.9 % SODIUM CHLORIDE 1,000 ML IV SCH (21:32)
[2017-09-11] MEDS: IBUPROFEN 200 MG TABLET PO PRN (22:15)
[2017-09-12] MEDS: ACETAMINOPHEN 325 MG TABLET PO PRN (01:54)
[2017-09-12] MEDS ORDERED: 0.9 % SODIUM CHLORIDE 1,000 ML IV ONE (04:00)
[2017-09-12 04:49] LABS: eGFR (African) > 60; eGFR (Non-African) > 60
[2017-09-12] MEDS: 0.9 % SODIUM CHLORIDE 1,000 ML IV SCH ×4 (05:04→22:34)
[2017-09-12] MEDS: IBUPROFEN 200 MG TABLET PO PRN ×2 (05:04→14:13)
--- NOTE | 2017-09-12 07:27 | Inpatient Progress Note ---
Subjective - Required Recertification Statement I anticipate X number of days because-include discharge plan: 1 day - Review of Systems Events since last encounter: Patient seems to be more confused today. States that she is restless and that her legs feel uncomfortable. No specific pain noted. No complaints of SOB, chest pain. General: Denies: Chills Pulmonary: Denies: Dyspnea, Cough Cardiovascular: Denies: Chest Pain Gastrointestinal: Denies: Nausea, Vomiting, Abdominal Pain, Diarrhea Objective - Exam Vitals and I&O: Vital Signs Temp 96.9 F L 09/12/17 07:00 Pulse 97 H 09/12/17 07:00 Resp 20 09/12/17 07:00 BP 124/50 09/12/17 07:00 Pulse Ox 97 09/12/17 07:00 Intake & Output 09/11/17 09/11/17 09/12/17 11:59 23:59 11:59 Intake Total 1175 2846 1702 Balance 1175 2846 1702 Weight 68.039 kg Intake: IV 935 1846 902 Left Forearm 611 902 Right Hand 935 1235 Oral 240 1000 800 Other: Voiding Method Toilet Toilet Toilet # Voids 2 1 # Bowel Movements 2 1 General: Alert, Oriented to Person, Cooperative, No acute distress. No: Oriented to Place, Oriented to Time Neck: Supple, No JVD Lungs: Clear to auscultation, Normal air movement. No: Wheezes, Rales, Rhonchi Cardiovascular: Regular rate, Normal S1, Normal S2, No murmurs Abdomen: Normal bowel sounds, Soft, No tenderness, No hepatospenomegaly Extremities: Other (trace edema) Skin: Erythema (to lower extremities) Neurological: Normal speech, Strength Equal Bilat, Sensation intact, Cranial nerves 3-12 NL, Reflexes 2+ Psych/Mental Status: Mood NL. No: Mental status NL (confused some), Intact Judgment - Results Results: Laboratory Results WBC 5.70 K/ul (4.00-12.00) 09/11/17 10:00 RBC 3.53 M/ul (3.90-5.20) L 09/11/17 10:00 Hgb 11.0 g/dL (12.0-16.0) L 09/11/17 10:00 Hct 31.5 % (34.5-46.5) L 09/11/17 10:00 MCV 89.4 fl (80.0-100.0) 09/11/17 10:00 MCH 31.2 pg (28.0-34.0) 09/11/17 10:00 MCHC 34.9 g/dL (30.0-36.0) 09/11/17 10:00 RDW 14.4 % (11.3-14.3) H 09/11/17 10:00 Plt Count 289 K/mm3 (130-400) 09/11/17 10:00 Neut % (Auto) 75.6 % (39.0-79.0) 09/11/17 10:00 Lymph % (Auto) 14.6 % (16.0-50.0) L 09/11/17 10:00 [place] % (Auto) 5.6 % (0.0-11.0) 09/11/17 10:00 Eos % (Auto) 2.8 % (0.0-6.8) 09/11/17 10:00 Baso % (Auto) 0.2 (0.0-1.5) 09/11/17 10:00 Neut # (Auto) 4.3 # k/uL (1.4-7.7) 09/11/17 10:00 Lymph # (Auto) 0.8 # k/uL (0.6-4.0) 09/11/17 10:00 [place] # (Auto) 0.3 # k/uL (0.0-0.9) 09/11/17 10:00 Eos # (Auto) 0.2 # k/uL (0.0-0.6) 09/11/17 10:00 Baso # (Auto) 0.0 # k/uL (0.0-0.5) 09/11/17 10:00 Reactive Lymphs % 1.2 % (0.0-5.0) 09/11/17 10:00 Reactive Lymphs # 0.1 # k/uL (0.0-0.8) 09/11/17 10:00 Sodium 120 mmol/L (136-145) L 09/12/17 04:22 Potassium 3.7 mmol/L (3.5-5.1) 09/12/17 04:22 Chloride 92 mmol/L (98-107) L 09/12/17 04:22 Carbon Dioxide 22 mmol/L (22-30) 09/12/17 04:22 BUN 9 mg/dL (7-17) 09/12/17 04:22 Creatinine 0.70 mg/dL (0.52-1.04) 09/12/17 04:22 Estimated Creat Clear 70 09/12/17 04:22 Est GFR ( Amer) > 60 (60-) 09/12/17 04:22 Est GFR (Non-Af Amer) > 60 (60-) 09/12/17 04:22 Glucose 103 mg/dL (74-106) 09/12/17 04:22 Calcium 8.5 mg/dL (8.4-10.2) 09/12/17 04:22 Total Bilirubin 0.3 mg/dL (0.2-1.3) 09/12/17 04:22 AST 42 U/L (15-46) 09/12/17 04:22 ALT 36 U/L (13-69) 09/12/17 04:22 Alkaline Phosphatase 82 U/L (38-126) 09/12/17 04:22 Total Protein 6.1 g/dL (6.3-8.2) L 09/12/17 04:22 Albumin 3.3 g/dL (3.5-5.0) L 09/12/17 04:22 Assessment/Plan - Assessment/Plan (1) Hyponatremia Status: Acute Assessment: improved to (2) Dehydration Status: Acute (3) Anemia Status: Chronic Qualifiers: (4) CHF (congestive heart failure) Status: Chronic Qualifiers: Heart failure type: unspecified Heart failure chronicity: unspecified Qualified Code(s): I50.9 - Heart failure, unspecified (5) Essential hypertension Status: Chronic
[2017-09-12] MEDS: ENOXAPARIN SODIUM 30 MG/0.3 ML DISP.SYRIN SQ SCH (07:38)
[2017-09-12] MEDS: amLODIPine BESYLATE 5 MG TABLET PO SCH (08:37)
[2017-09-12] MEDS: POLYETHYLENE GLYCOL 3350 17 GM POWD.PACK PO SCH (08:37)
[2017-09-12] MEDS: POTASSIUM CHLORIDE 20 MEQ TABLET.ER PO SCH ×3 (08:37→17:08)
[2017-09-12] MEDS: SERTRALINE HCL 50 MG TABLET PO SCH (08:37)
[2017-09-12] MEDS: METOPROLOL TARTRATE 25 MG TABLET PO SCH (08:37)
[2017-09-12] MEDS: BISACODYL 5 MG TABLET.DR PO SCH (08:37)
[2017-09-12] MEDS: GABAPENTIN 100 MG CAPSULE PO SCH ×2 (08:37→20:41)
[2017-09-12] MEDS: ASPIRIN 81 MG CHEW TAB PO SCH (08:37)
[2017-09-12] MEDS ORDERED: TRIAMCINOLONE CREAM 0.1% 15GM TUBE TP ONE (10:58)
[2017-09-12] MEDS: TRIAMCINOLONE ACETONIDE 0.1% TP SCH ×2 (12:43→20:41)
[2017-09-12] MEDS: SENNOSIDES 8.6 MG TABLET PO SCH (12:44)
[2017-09-12] MEDS: rOPINIRole HCL 1 MG TABLET PO SCH (17:08)
[2017-09-12] MEDS: LORazepam 0.5 MG TABLET PO PRN (17:08)
[2017-09-12 18:37] LABS: eGFR (African) > 60; eGFR (Non-African) > 60
[2017-09-12] MEDS: ATORVASTATIN CALCIUM 80 MG TABLET PO SCH (20:41)
[2017-09-12] MEDS ORDERED: LEVOTHYROXINE SODIUM 25 MCG TABLET ONE (22:08)
[2017-09-13] MEDS: 0.9 % SODIUM CHLORIDE 1,000 ML IV SCH ×2 (04:16→17:15)
[2017-09-13] MEDS: ACETAMINOPHEN 325 MG TABLET PO PRN (04:23)
[2017-09-13] MEDS: LEVOTHYROXINE SODIUM 25 MCG TABLET PO SCH (06:07)
[2017-09-13 06:45] LABS: BASOPHILS % 0.3 (0.0-1.5); EOSINOPHILS % 5.7 % (0.0-6.8); MEAN CORPUSCULAR HEMOGLOBIN 31.8 pg (28.0-34.0); MEAN CORPUSCULAR VOLUME 89.3 fl (80.0-100.0); MONOCYTES % 5.7 % (0.0-11.0); NEUTROPHILS # 4.4 # k/uL (1.4-7.7)
[2017-09-13 06:47] LABS: eGFR (African) > 60; eGFR (Non-African) > 60
[2017-09-13] MEDS: GABAPENTIN 100 MG CAPSULE PO SCH ×2 (08:02→21:18)
[2017-09-13] MEDS: METOPROLOL TARTRATE 25 MG TABLET PO SCH (08:02)
[2017-09-13] MEDS: POLYETHYLENE GLYCOL 3350 17 GM POWD.PACK PO SCH (08:02)
[2017-09-13] MEDS: BISACODYL 5 MG TABLET.DR PO SCH (08:02)
[2017-09-13] MEDS: ENOXAPARIN SODIUM 30 MG/0.3 ML DISP.SYRIN SQ SCH (08:02)
[2017-09-13] MEDS: SERTRALINE HCL 50 MG TABLET PO SCH (08:02)
[2017-09-13] MEDS: amLODIPine BESYLATE 5 MG TABLET PO SCH (08:06)
[2017-09-13] MEDS: ASPIRIN 81 MG CHEW TAB PO SCH (08:06)
[2017-09-13] MEDS: rOPINIRole HCL 1 MG TABLET PO SCH ×2 (08:06→17:20)
[2017-09-13] MEDS: POTASSIUM CHLORIDE 20 MEQ TABLET.ER PO SCH ×3 (08:07→17:20)
[2017-09-13] MEDS: TRIAMCINOLONE ACETONIDE 0.1% TP SCH ×2 (08:07→21:17)
[2017-09-13 08:21] LABS: APPEARANCE,URINE CLOUDY (CLEAR); COLOR,URINE YELLOW (YELLOW); OCCULT BLOOD,URINE TRACE-LYSED (NEGATIVE); UROBILINOGEN URINE 0.2 Eu (0.2-1.0)
[2017-09-13] MEDS ORDERED: CIPROFLOXACIN/D5W 400 MG in PREMIX BAG 1 BAG IV ONE (08:56)
[2017-09-13] MEDS ORDERED: LEVOTHYROXINE SODIUM 25 MCG TABLET PO SCH (09:00)
[2017-09-13] MEDS ORDERED: CIPROFLOXACIN/D5W 200 ML IV ONE (09:26)
[2017-09-13] MEDS: SENNOSIDES 8.6 MG TABLET PO SCH (13:07)
[2017-09-13] MEDS: LORazepam 0.5 MG TABLET PO PRN (17:19)
[2017-09-13 18:12] LABS: eGFR (African) > 60; eGFR (Non-African) > 60
[2017-09-13] MEDS ORDERED: ONDANSETRON HCL/PF 4 MG/ 2ML VIAL ONE ×2 (18:35→19:57)
[2017-09-13] MEDS ORDERED: ONDANSETRON HCL/PF 4 MG/ 2ML VIAL IVP PRN (18:37)
[2017-09-13] MEDS ORDERED: CIPROFLOXACIN HCL 500 MG TABLET PO SCH (20:00)
[2017-09-13] MEDS ORDERED: cefTRIAXone SODIUM 1 GM in 0.9 % SODIUM CHLORIDE 50 ML IV ONE (21:00)
[2017-09-13] MEDS: ATORVASTATIN CALCIUM 80 MG TABLET PO SCH (21:17)
[2017-09-13] MEDS ORDERED: cefTRIAXone SODIUM 1 GM VIAL ONE (22:18)
[2017-09-13] MEDS ORDERED: ONDANSETRON HCL 4 MG TAB.RAPDIS PO PRN (22:58)
[2017-09-13] MEDS ORDERED: cefTRIAXone SODIUM 1 GM VIAL IM SCH ×2 (23:00)
[2017-09-14] MEDS: LEVOTHYROXINE SODIUM 25 MCG TABLET PO SCH (06:00)
[2017-09-14 06:21] VITALS: BP 150/68
--- NOTE | 2017-09-14 07:22 | Inpatient Progress Note ---
Subjective - Required Recertification Statement I anticipate X number of days because-include discharge plan: 1 day - Review of Systems Events since last encounter: Patient seemed to be doing better today. Patient is less confused and patient's mental status is close to baseline. Patient sodium level has improved to 129. Objective - Exam Vitals and I&O: Vital Signs Temp 99 F 09/14/17 05:00 Pulse 88 09/14/17 06:22 Resp 18 09/14/17 06:22 BP 150/68 09/14/17 05:00 Pulse Ox 96 09/14/17 05:00 Intake & Output 09/13/17 09/13/17 09/14/17 11:59 23:59 11:59 Intake Total 972 580 100 Output Total 200 Balance 972 380 100 Weight 68.039 kg 68.039 kg Intake: IV 512 Left Forearm 512 Oral 460 180 100 Other 400 Output: Emesis 200 Other: Voiding Method Toilet Toilet Toilet # Voids 2 3 1 # Bowel Movements 1 General: Alert, Oriented to Person, Oriented to Place, Oriented to Time Neck: Supple Lungs: Clear to auscultation, Normal air movement, Speaks full Sentences Cardiovascular: Regular rate, Normal S1, Normal S2, V-Tach Abdomen: Soft, No tenderness Skin: Normal, [place], Warm, Dry Psych/Mental Status: Mental status NL, Mood NL, Appropriate Affect, Intact Judgment - Results Results: Laboratory Results WBC 6.40 K/ul (4.00-12.00) 09/13/17 06:26 RBC 3.51 M/ul (3.90-5.20) L 09/13/17 06:26 Hgb 11.2 g/dL (12.0-16.0) L 09/13/17 06:26 Hct 31.4 % (34.5-46.5) L 09/13/17 06:26 MCV 89.3 fl (80.0-100.0) 09/13/17 06:26 MCH 31.8 pg (28.0-34.0) 09/13/17 06:26 MCHC 35.6 g/dL (30.0-36.0) 09/13/17 06:26 RDW 14.7 % (11.3-14.3) H 09/13/17 06:26 Plt Count 331 K/mm3 (130-400) 09/13/17 06: Neut % (Auto) 68.6 % (39.0-79.0) 09/13/17 06: Lymph % (Auto) 18.6 % (16.0-50.0) 09/13/17 06: [place] % (Auto) 5.7 % (0.0-11.0) 09/13/17 06: Eos % (Auto) 5.7 % (0.0-6.8) 09/13/17 06: Baso % (Auto) 0.3 (0.0-1.5) 09/13/17 06: Neut # (Auto) 4.4 # k/uL (1.4-7.7) 09/13/17: Lymph # (Auto) 1.2 # k/uL (0.6-4.0) 09/13/17 06: [place] # (Auto) 0.4 # k/uL (0.0-0.9) 09/13/17 06: Eos # (Auto) 0.4 # k/uL (0.0-0.6) 09/13/17 06: Baso # (Auto) 0.0 # k/uL (0.0-0.5) 09/13/17 06: Reactive Lymphs % 1.2 % (0.0-5.0) 09/13/17 06: Reactive Lymphs # 0.1 # k/uL (0.0-0.8) 09/13/17 06:26 Sodium 128 mmol/L (136-145) L 09/13/17 18:00 Potassium 4.3 mmol/L (3.5-5.1) 09/13/17 18:00 Chloride 98 mmol/L (98-107) 09/13/17 18:00 Carbon Dioxide 22 mmol/L (22-30) 09/13/17 18:00 BUN 5 mg/dL (7-17) L 09/13/17 18:00 Creatinine 0.60 mg/dL (0.52-1.04) 09/13/17 18:00 Estimated Creat Clear 81 09/13/17 18:00 Est GFR ( Amer) > 60 (60-) 09/13/17 18:00 Est GFR (Non-Af Amer) > 60 (60-) 09/13/17 18:00 Glucose 201 mg/dL (74-106) H 09/13/17 18:00 Calcium 8.8 mg/dL (8.4-10.2) 09/13/17 18:00 Total Bilirubin 0.3 mg/dL (0.2-1.3) 09/13/17 06:26 AST 52 U/L (15-46) H 09/13/17 06:26 ALT 44 U/L (13-69) 09/13/17 06:26 Alkaline Phosphatase 77 U/L (38-126) 09/13/17 06:26 Total Protein 6.3 g/dL (6.3-8.2) 09/13/17 06:26 Albumin 3.4 g/dL (3.5-5.0) L 09/13/17 06:26 Urine Color Yellow (YELLOW) 09/12/17 21:55 Urine Appearance Cloudy (CLEAR) H 09/12/17 21:55 Urine pH 7.0 (5.0 - 8.0) 09/12/17 21:55 Ur Specific [place] 1.015 (1.010-1.030) 09/12/17 21:55 Urine Protein Negative mg/dL (NEGATIVE) 09/12/17 21:55 Urine Ketones Negative mg/dL (NEGATIVE) 09/12/17 21:55 Urine Occult Blood Trace-lysed (NEGATIVE) H 09/12/17 21:55 Urine Nitrite Positive (NEGATIVE) H 09/12/17 21:55 Urine Bilirubin Negative (NEGATIVE) 09/12/17 21:55 Urine Urobilinogen 0.2 Eu (0.2-1.0) 09/12/17 21:55 Ur Leukocyte Esterase 2+ (NEGATIVE) H 09/12/17 21:55 Urine Glucose Negative mg/dL (NEGATIVE) 09/12/17 21:55 Assessment/Plan - Assessment/Plan (1) Hyponatremia Status: Acute Assessment: improving (2) Dehydration Status: Acute Assessment: improving (3) CHF (congestive heart failure) Status: Chronic Qualifiers: Heart failure type: unspecified Heart failure chronicity: unspecified Qualified Code(s): I50.9 - Heart failure, unspecified Assessment: stable (4) Essential hypertension Status: Chronic Assessment: stable
--- NOTE | 2017-09-14 07:23 | Discharge Summary ---
Discharge Summary - Discharge Sumary History of Present Illness: coded (ACUTE) 87-year-old white female from [facility] who is had chronic problems with peel edema. Patient has had we been in her legs recently from the peel edema. Patient is on Lasix therapy. Recently was started on xeroxing the try to help with the edema. When recheck in patients electrolytes today it was noted that she was markedly hyponatremia and hypokalemic. Patient had an elevated BUN and creatinine. It was felt that she had a component of dehydration. Patient was subsequently admitted to the hospital for further care and evaluation. Condition at Discharge: Stable Home Medications: Ambulatory Orders Medication Instructions Recorded Aspirin [Senait] 81 mg PO DAILY 05/08/17 Atorvastatin Calcium [Lipitor] 40 mg PO HS 05/08/17 Bisacodyl 5 mg PO DAILY 05/08/17 Furosemide [Lasix] 40 mg PO DAILY 05/08/17 Gabapentin 300 mg PO BID 05/08/17 Metoprolol Tartrate [Lopressor] 25 mg PO DAILY 05/08/17 Omeprazole [Prilosec] 40 mg PO DAILY 05/08/17 Polyethylene Glycol 3350 [Miralax] 17 gm PO DAILY 05/08/17 Vit No.124/Iron/Folic 1 tab PO DAILY 05/08/17 [ Vitamin Tablet] Sennosides [Senna] 8.6 mg PO 1200 05/08/17 Sennosides/Docusate Sodium 1 tab PO BID 05/08/17 [Senna-Docusate Sodium Tablet] Sertraline HCl [Zoloft] 50 mg PO DAILY 05/08/17 Spironolactone [Aldactone] 25 mg PO DAILY 05/08/17 Trospium Chloride [Sanctura] 20 mg PO DAILY 05/08/17 amLODIPine BESYLATE [Norvasc] 5 mg PO DAILY 05/08/17 Acetaminophen [Tylenol] 650 mg PO Q6 PRN 06/04/17 Guaifenesin [Mucinex] 600 mg PO BID PRN 06/04/17 Ibuprofen [Advil] 200 mg PO Q6H PRN 06/04/17 Mag Hydrox/Aluminum Hyd/Simeth 30 ml PO ACHS PRN 06/04/17 [Mylanta] Magnesium Hydroxide [Milk of 15 ml PO HS PRN 06/04/17 Magnesia] Levothyroxine Sodium [Unithroid] 25 mcg PO D 09/12/17 rOPINIRole HCL [Requip] 1 mg PO BID 09/12/17 Triamcinolone Acetonide 0.1% 1 gm TP BID jar 09/13/17 [Kenalog 0.1% cream] Ciprofloxacin HCl [Cipro] 250 mg PO BID #10 tablet 09/14/17 Consultations this Visit: None Procedures this Visit: None Allergies/Adverse Reactions: Allergies Allergy/AdvReac Type Severity Reaction Status Date / Time No Known Allergies Allergy Verified 06/04/17 22:55 Discharge Summary: Patient was started on IV therapy with normal saline. It was felt that the patient hyponatremia was related to dehydration related to diuretic therapy that she is been receiving in the [facility]. Patient sodium level did slowly increased. On admission it was 116 on discharge it was 129. With improving sodium level patient mentation also improved. Patient peel edema remain stable. Patient weight remain stable. Patient is also felt to have a urinary tract infection. This was treated with ciprofloxacin. Urine culture subsequently came back positive for E. coli.At the time of dismissal patient was stable was felt that she her care could be further provided for by the [facility]. Patient with discharged in stable condition. - Final Diagnosis (1) Hyponatremia Problems: improved 129 at discharge (2) UTI (urinary tract infection) Problems: E coli treated (3) Dehydration Problems: improved (5) CHF (congestive heart failure) Problems: stable (6) Essential hypertension Problems: stable
[2017-09-14 07:29] LABS: BASOPHILS % 0.1 (0.0-1.5); EOSINOPHILS % 1.8 % (0.0-6.8); MEAN CORPUSCULAR HEMOGLOBIN 31.6 pg (28.0-34.0); MEAN CORPUSCULAR VOLUME 90.7 fl (80.0-100.0); MONOCYTES % 5.7 % (0.0-11.0); NEUTROPHILS # 4.2 # k/uL (1.4-7.7)
[2017-09-14] MEDS: POLYETHYLENE GLYCOL 3350 17 GM POWD.PACK PO SCH (08:02)
[2017-09-14] MEDS: ASPIRIN 81 MG CHEW TAB PO SCH (08:02)
[2017-09-14] MEDS: SERTRALINE HCL 50 MG TABLET PO SCH (08:02)
[2017-09-14] MEDS: amLODIPine BESYLATE 5 MG TABLET PO SCH (08:02)
[2017-09-14] MEDS: METOPROLOL TARTRATE 25 MG TABLET PO SCH (08:02)
[2017-09-14] MEDS: ENOXAPARIN SODIUM 30 MG/0.3 ML DISP.SYRIN SQ SCH (08:02)
[2017-09-14] MEDS: BISACODYL 5 MG TABLET.DR PO SCH (08:02)
[2017-09-14] MEDS: GABAPENTIN 100 MG CAPSULE PO SCH (08:02)
[2017-09-14] MEDS: TRIAMCINOLONE ACETONIDE 0.1% TP SCH (08:03)
[2017-09-14] MEDS: rOPINIRole HCL 1 MG TABLET PO SCH (08:03)
[2017-09-14] MEDS: POTASSIUM CHLORIDE 20 MEQ TABLET.ER PO SCH (08:03)
[2017-09-14 08:49] LABS: eGFR (African) > 60; eGFR (Non-African) > 60
== END 2017-09-14 11:00 | DRG 641 ==
LOC: SOUTH 07:33
PROVIDERS: ADMIT Family Medicine; ATTEND Family Medicine
DX: E87.1 Hypo-osmolality and hyponatremia (principal); E86.0 Dehydration; I11.0 Hypertensive heart disease with heart failure; I50.9 Heart failure, unspecified
CPT/HCPCS: 36415; 80048; 80053; 81002; 85025; 87086; 87186; A9270; J0696; J0744; J1650; J2405; J3480; J7030; 99222; 99232; 99238; S1016

== ENCOUNTER 2018-03-02 16:00 | Emergency (ER) | payer MEDICARE, OTHER ==
[2018-03-02] MEDS ORDERED: LIDOCAINE HCL 1% PF 50MG/5ML AMP (IM/SUTURE/PAIN CLINIC) IJ ONE (17:22)
[2018-03-02] MEDS ORDERED: LIDOCAINE HCL 1% PF 300MG/30ML VIAL ONE (17:28)
--- NOTE | 2018-03-02 17:48 | ED Physician Documentation ---
General Adult - HISTORIAN Historian: patient - HPI Stated Complaint: Lacerations from glass cabinet Chief Complaint: General Adult Onset: minutes Timing: still present Severity: moderate Further Comments: yes (Pt is an 87 [facility] who fell and put her R hand through a glass cabinet. Pt has no other injuries beyond her hand lacerations.) - ROS CONST: no problems EYES/ENT: none CVS/RESP: none GI/: none MS/SKIN/LYMPH: other (R hand lacerations) - PAST HX Past History: other (Anemia, Depression, HTN, Thyroid d/o, HLD, GERD) Allergies/Adverse Reactions: Allergies Allergy/AdvReac Type Severity Reaction Status Date / Time No Known Allergies Allergy Verified 03/02/18 18:43 Home Medications: Ambulatory Orders Medication Instructions Recorded Aspirin [Senait] 81 mg PO DAILY 05/08/17 Atorvastatin Calcium [Lipitor] 40 mg PO HS 05/08/17 Bisacodyl 5 mg PO DAILY 05/08/17 Furosemide [Lasix] 40 mg PO DAILY 05/08/17 Gabapentin 300 mg PO BID 05/08/17 Metoprolol Tartrate [Lopressor] 25 mg PO DAILY 05/08/17 Omeprazole [Prilosec] 40 mg PO DAILY 05/08/17 Polyethylene Glycol 3350 [Miralax] 17 gm PO DAILY 05/08/17 Vit No.124/Iron/Folic 1 tab PO DAILY 05/08/17 [ Vitamin Tablet] Sennosides [Senna] 8.6 mg PO 1200 05/08/17 Sennosides/Docusate Sodium 1 tab PO BID 05/08/17 [Senna-Docusate Sodium Tablet] Sertraline HCl [Zoloft] 50 mg PO DAILY 05/08/17 Spironolactone [Aldactone] 25 mg PO DAILY 05/08/17 Trospium Chloride [Sanctura] 20 mg PO DAILY 05/08/17 amLODIPine BESYLATE [Norvasc] 5 mg PO DAILY 05/08/17 Acetaminophen [Tylenol] 650 mg PO Q6 PRN 06/04/17 Ibuprofen [Advil] 200 mg PO Q6H PRN 06/04/17 Mag Hydrox/Aluminum Hyd/Simeth 30 ml PO ACHS PRN 06/04/17 [Mylanta] Magnesium Hydroxide [Milk of 15 ml PO HS PRN 06/04/17 Magnesia] Levothyroxine Sodium [Unithroid] 25 mcg PO D 09/12/17 rOPINIRole HCL [Requip] 1 mg PO BID 09/12/17 Triamcinolone Acetonide 0.1% 1 gm TP BID jar 09/13/17 [Kenalog 0.1% cream] - SOCIAL HX Smoking History: non-smoker - FAMILY HX Family History: No - VITAL SIGNS Vital Signs: Vital Signs Temp Pulse Resp BP Pulse Ox 97.2 F L 72 24 122/86 97 03/02/18 16:05 03/02/18 16:05 03/02/18 16:05 03/02/18 16:05 03/02/18 16:05 - REVIEWED ASSESSMENTS Nursing Assessment Reviewed: Yes Vitals Reviewed: Yes Procedures Wound Location: upper extremity (R small finger) Wound Length: 1.5 cm Wound's Depth, Shape: superficial Wound Explored: clean Irrigated w/ Saline (ccs): 20 Betadine Prep?: No (Mike) Anesthesia: 1% Lidocaine Volume of Anesthetic: 2 ml Wound Debrided: minimal Wound Repaired With: sutures Suture Size/Type: 4:0, nylon Number of Sutures: 3 Sterile Dressing Applied?: Yes Splint Applied?: No Progress - Progress Progress: Rx Keflex 500 mg. Take one every 12 hours for 5 days. Apply Triple Antibiotic to affected areas twice daily for 5 days. (1st in ER.) Follow up with primary provider in 5 to 7 days for suture removal. ED Results Lab/Radiology - Orders Orders: ED Orders Category Date Time Status Lidocaine 1% 5ml(IM or SUTURE) [Xylocaine] Med 03/02/18 17:22 Once 50 mg IJ NOW ONE Lidocaine 1% PF 30ml [Xylocaine 1% 30Ml Vial] Med 03/02/18 17:28 Discontinued 300 mg .ROUTE .STK-MED ONE General Adult Physical Exam - PHYSICAL EXAM GENERAL APPEARANCE: mild distress NECK: normal inspection, supple RESPIRATORY: no resp distress, chest non-tender, breath sounds normal CVS: reg rate & rhythm, heart sounds normal BACK: normal inspection, no CVA tenderness SKIN: other (small avulsion injury R middle finger, ventally, just proximal to nail; 1.5 cm lac lateral small finger at MP joint) NEURO: oriented X3, motor nml, sensation nml Discharge Clincal Impression: L hand lacerations Referrals: Eric Roque MD [Primary Care Provider] - Condition: Good Disposition: 04 XFER SENIOR CARE Decision to Admit: NO Decision Time: 17:48
[2018-03-02] MEDS ORDERED: CEPHALEXIN 250 MG CAPSULE PO ONE (17:49)
[2018-03-02 18:42] VITALS: BP 141/61
== END 2018-03-02 18:20 ==
LOC: ED 16:00
DX: S61.216A Laceration without foreign body of right little finger without damage to nail, initial encounter (principal); S61.212A Laceration without foreign body of right middle finger without damage to nail, initial encounter; W25.XXXA Contact with sharp glass, initial encounter; Y93.9 Activity, unspecified; Y92.129 Unspecified place in nursing home as the place of occurrence of the external cause
CPT/HCPCS: 12001; 99282; 99283

== ENCOUNTER 2018-03-05 14:40 | Outpatient (CLI) | payer MEDICARE, OTHER ==
[2018-03-05 15:44] LABS: MEAN CORPUSCULAR HEMOGLOBIN 31.1 pg (28.0-34.0)
[2018-03-05 15:45] LABS: BASOPHILS % 0.4 (0.0-1.5); EOSINOPHILS % 8.1 % (0.0-6.8); MONOCYTES % 5.7 % (0.0-11.0); NEUTROPHILS # 3.8 # k/uL (1.4-7.7)
[2018-03-05 15:50] LABS: eGFR (Non-African) > 60
== END 2018-03-05 14:42 ==
LOC: LAB 14:40
PROVIDERS: ATTEND Family Medicine
DX: I10 Essential (primary) hypertension (principal); E03.9 Hypothyroidism, unspecified; G25.81 Restless legs syndrome; E78.5 Hyperlipidemia, unspecified; G62.9 Polyneuropathy, unspecified
CPT/HCPCS: 36415; 80053; 85025

== ENCOUNTER 2018-03-13 20:36 | Emergency (ER) | payer MEDICARE, OTHER ==
[2018-03-13] MEDS ORDERED: DIPH,PERTUSS(ACELL),TET VAC/PF 0.5 ML DISP.SYRIN IM ONE ×2 (22:05→22:17)
--- NOTE | 2018-03-13 22:08 | ED Physician Documentation ---
Fall - HISTORIAN Historian: patient, paramedics - HPI Stated Complaint: Fall, minor lac to top of head Chief Complaint: Fall Additional Information: at shelter folding clothes feet tangled fell w/ very superficial lac v shape vertex scalp 3cm-no loc denies all c/o now stated walked in hallway at [facility] w/o difficulty after fall Onset: just prior to arrival Where: home Context: lost balance r: mild Associated Symptoms:: no loss of consciousness Location of Pain/Injury: head (denies head neck chest back pain moves all 4 ext w/o difficulty has amb in ed w/o difficulty-denies c/o desires ret nh) Injury to Right Extremity: none Injury to Left Extremity: none - ROS CONST: no problems. denies: recent illness, fever, sweating, weakness, chills, other NEURO: denies: dizziness, anxiety, depression MS/SKIN/LYMPH: denies: weakness, numbness, neck pain, back pain, ankle swelling, leg swelling EYES/ENT: denies: problems with vision CVS/RESP: none GI/: denies: nausea, vomiting (neuropathy RLS aortic stenosisHTN spinal stenosis depression hypothryoid) - PAST HX Past History: other (see below) Immunizations: tetanus Allergies/Adverse Reactions: Allergies Allergy/AdvReac Type Severity Reaction Status Date / Time No Known Allergies Allergy Verified 03/02/18 18:43 Home Medications: Ambulatory Orders Medication Instructions Recorded Aspirin [Senait] 81 mg PO DAILY 05/08/17 Atorvastatin Calcium [Lipitor] 40 mg PO HS 05/08/17 Bisacodyl 5 mg PO DAILY 05/08/17 Furosemide [Lasix] 40 mg PO DAILY 05/08/17 Gabapentin 300 mg PO BID 05/08/17 Metoprolol Tartrate [Lopressor] 25 mg PO DAILY 05/08/17 Omeprazole [Prilosec] 40 mg PO DAILY 05/08/17 Polyethylene Glycol 3350 [Miralax] 17 gm PO DAILY 05/08/17 Vit No.124/Iron/Folic 1 tab PO DAILY 05/08/17 [ Vitamin Tablet] Sennosides [Senna] 8.6 mg PO 1200 05/08/17 Sennosides/Docusate Sodium 1 tab PO BID 05/08/17 [Senna-Docusate Sodium Tablet] Sertraline HCl [Zoloft] 50 mg PO DAILY 05/08/17 Spironolactone [Aldactone] 25 mg PO DAILY 05/08/17 Trospium Chloride [Sanctura] 20 mg PO DAILY 05/08/17 amLODIPine BESYLATE [Norvasc] 5 mg PO DAILY 05/08/17 Acetaminophen [Tylenol] 650 mg PO Q6 PRN 06/04/17 Ibuprofen [Advil] 200 mg PO Q6H PRN 06/04/17 Mag Hydrox/Aluminum Hyd/Simeth 30 ml PO ACHS PRN 06/04/17 [Mylanta] Magnesium Hydroxide [Milk of 15 ml PO HS PRN 06/04/17 Magnesia] Levothyroxine Sodium [Unithroid] 25 mcg PO D 09/12/17 rOPINIRole HCL [Requip] 1 mg PO BID 09/12/17 Triamcinolone Acetonide 0.1% 1 gm TP BID jar 09/13/17 [Kenalog 0.1% cream] - SOCIAL HX Smoking History: non-smoker Alcohol Use: none Drug Use: none - FAMILY HX Family History: no significant history - VITAL SIGNS Vital Signs: Vital Signs Temp Pulse Resp BP Pulse Ox 97.8 F 99 H 16 137/68 99 03/13/18 20:37 03/13/18 20:37 03/13/18 20:37 03/13/18 20:37 03/13/18 20:37 - REVIEWED ASSESSMENTS Nursing Assessment Reviewed: Yes Vitals Reviewed: Yes Procedures Wound Location: head Wound's Depth, Shape: superficial, other (v-shape) Wound Repaired With: Dermabond Sterile Dressing Applied?: No Splint Applied?: No Sling Applied?: No ED Results Lab/Radiology - Orders Orders: ED Orders Category Date Time Status Octyseal [Skin Adhesive] NOW Care 03/13/18 22:15 Ordered Diph,Pertuss(Acell),Tet Vac/Pf [Adacel] Med 03/13/18 22:05 Once 0.5 ml IM .ONCE ONE Fall Physical Exam - Physical Exam General Appearance: no acute distress Head: non-tender, no swelling, trauma (3cm very superficial lac v-shaped) Neck: non-tender, painless ROM, trachea midline. No: decreased ROM, limited ROM, pain with neck movement, axial compression Eye: INESSA, EOMI ENT: nml external inspection, airway nml Resp/CVS: chest non-tender, no ecchymosis, breath sounds nml, heart sounds nml. No: rib tenderness Abdomen: soft, non-tender (protuberant but states bowels kidneys ok) Neuro: oriented x3, CN's nml as tested, sensation nml, motor nml, mood/affect nml, english as a second language teacher nml, reflexes nml, english as a second language teacher symmetrical. No: unsteady gait, ataxic gait, motor deficit, slurred speech, depressed mood/affect, sensory deficit Skin: color nml, no rash. No: cyanosis, diaphoresis Back: normal inspection, no CVA tenderness, no vertebral tenderness Extremities: atraumatic, pelvis stable, hips non-tender, no pedal edema, nml color/temp Joint: joints nml, nml ROM - Sandy Coma Score Eyes Open: Spontaneous Motor: Obeys Commands Discharge Clincal Impression: fall w superficial scalp laceration Referrals: Eric Roque MD [Primary Care Provider] - 2 Days Comments: amb w/o difficulty wants to rt nh - appears ok tet tox Condition: Good Disposition: 01 HOME, SELF-CARE Decision to Admit: NO Decision Time: 22:17
[2018-03-13 23:39] VITALS: BP 142/64
== END 2018-03-13 22:40 | disposition home or self-care (01) ==
LOC: ED 20:36
DX: S01.01XA Laceration without foreign body of scalp, initial encounter (principal); W01.0XXA Fall on same level from slipping, tripping and stumbling without subsequent striking against object, initial encounter; Y93.E2 Activity, laundry; Y92.129 Unspecified place in nursing home as the place of occurrence of the external cause
CPT/HCPCS: 12002; 90471; 90715; 99282; 99284

== ENCOUNTER 2018-05-05 11:34 | Outpatient (CLI) | payer MEDICARE, OTHER ==
[2018-05-05 12:30] LABS: APPEARANCE,URINE CLOUDY (CLEAR); COLOR,URINE YELLOW (YELLOW); OCCULT BLOOD,URINE 2+ (NEGATIVE); UROBILINOGEN URINE 0.2 Eu (0.2-1.0)
== END 2018-05-05 11:36 ==
LOC: LAB 11:34
PROVIDERS: ATTEND Family Medicine
DX: R41.0 Disorientation, unspecified (principal); B96.20 Unspecified Escherichia coli [E. coli] as the cause of diseases classified elsewhere; Z16.24 Resistance to multiple antibiotics
CPT/HCPCS: 81002; 87086

== ENCOUNTER 2018-05-07 14:48 | Outpatient (CLI) | payer MEDICARE, OTHER ==
[2018-05-07 15:14] LABS: BASOPHILS % 0.5 (0.0-1.5); EOSINOPHILS % 3.9 % (0.0-6.8); MEAN CORPUSCULAR HEMOGLOBIN 31.1 pg (28.0-34.0); MONOCYTES % 5.1 % (0.0-11.0); NEUTROPHILS # 6.1 # k/uL (1.4-7.7)
[2018-05-07 15:44] LABS: eGFR (Non-African) 9
== END 2018-05-07 14:50 ==
LOC: LAB 14:48
PROVIDERS: ATTEND Family Medicine
DX: I10 Essential (primary) hypertension (principal); G25.81 Restless legs syndrome; K57.92 Diverticulitis of intestine, part unspecified, without perforation or abscess without bleeding; K21.9 Gastro-esophageal reflux disease without esophagitis; F32.9 Major depressive disorder, single episode, unspecified; E03.9 Hypothyroidism, unspecified; I50.9 Heart failure, unspecified; G62.9 Polyneuropathy, unspecified
CPT/HCPCS: 36415; 80053; 85025

== ENCOUNTER 2018-07-23 14:35 | Outpatient (CLI) | payer MEDICARE, OTHER ==
--- NOTE | 2018-07-24 00:36 | Diagnostic Imaging Report ---
GENEVIEVE REYES [facility] [id number] [facility] [address] [place], [place]. [address] Report Submission Date: July 23, 2018 4:35:25 PM CDT Patient Study Name: [facility]ON [facility]ILDRESS Date: July 23, 2018 2:45:41 PM CDT Modality Type: DX Gender: F Description: CHEST 2VIEW : 28 Institution: [facility] Physician: GENEVIEVE REYES Chest, PA and lateral HISTORY Cough FINDINGS Interstitial markings are increased. There is no pleural effusion or pneumothorax. Heart size and pulmonary vascularity are normal. There is calcification in the thoracic aorta. Thoracic spine is demineralized. Since 06/04/2017, no significant change has occurred. IMPRESSION Atherosclerosis. No active disease. Electronically signed on July 23, 2018 4:35:25 PM CDT by: Hubert ELLER
== END 2018-07-23 14:37 ==
LOC: RAD 14:35
PROVIDERS: ATTEND Family Medicine
DX: I70.90 Unspecified atherosclerosis (principal); R09.89 Other specified symptoms and signs involving the circulatory and respiratory systems
CPT/HCPCS: 71046

== ENCOUNTER 2018-08-07 06:15 | Outpatient (CLI) | payer MEDICARE, OTHER | END 2018-08-07 16:30 | disposition home or self-care (01) | LOC: LAB 06:15 | PROVIDERS: ATTEND Family Medicine | DX: E03.9 Hypothyroidism, unspecified (principal) | CPT/HCPCS: 36415; 84443 ==

== ENCOUNTER 2018-08-28 07:15 | Outpatient (CLI) | payer MEDICARE, OTHER | END 2018-08-28 07:17 | LOC: LAB 07:15 | PROVIDERS: ATTEND Family Medicine | DX: E78.5 Hyperlipidemia, unspecified (principal) | CPT/HCPCS: 36415; 84132 ==

== ENCOUNTER 2018-09-09 06:46 | Outpatient (CLI) | payer MEDICARE, OTHER ==
[2018-09-09 07:37] LABS: eGFR (Non-African) > 60
== END 2018-09-09 06:51 ==
LOC: LAB 06:46
PROVIDERS: ATTEND Family Medicine
DX: I11.0 Hypertensive heart disease with heart failure (principal); I50.9 Heart failure, unspecified
CPT/HCPCS: 80048

== ENCOUNTER 2018-10-09 11:22 | Outpatient (CLI) | payer MEDICARE, OTHER ==
[2018-10-09 11:36] LABS: eGFR (Non-African) > 60
[2018-10-09 11:37] LABS: BASOPHILS % 0.5 % (0.0-1.5); NEUTROPHILS # 5.3 # k/uL (1.4-7.7)
== END 2018-10-09 11:24 ==
LOC: LAB 11:22
PROVIDERS: ATTEND Family Medicine
DX: I11.0 Hypertensive heart disease with heart failure (principal); I50.9 Heart failure, unspecified; G20 Parkinson's disease
CPT/HCPCS: 80053; 85025

== ENCOUNTER 2018-12-01 07:17 | Outpatient (CLI) | payer MEDICARE, OTHER ==
[2018-12-01 09:32] LABS: APPEARANCE,URINE CLEAR (CLEAR); COLOR,URINE YELLOW (YELLOW); OCCULT BLOOD,URINE TRACE-INTACT (NEGATIVE); UROBILINOGEN URINE 0.2 Eu (0.2-1.0)
== END 2018-12-01 07:19 ==
LOC: LAB 07:17
PROVIDERS: ATTEND Family Medicine
DX: R39.198 Other difficulties with micturition (principal); R35.0 Frequency of micturition
CPT/HCPCS: 81002; 87086

== ENCOUNTER 2019-02-06 16:36 | Outpatient (CLI) | payer MEDICARE, OTHER ==
[2019-02-06 16:45] LABS: APPEARANCE,URINE CLOUDY (CLEAR); COLOR,URINE YELLOW (YELLOW); OCCULT BLOOD,URINE 2+ (NEGATIVE); UROBILINOGEN URINE 0.2 Eu (0.2-1.0)
== END 2019-02-06 16:41 ==
LOC: LAB 16:36
PROVIDERS: ATTEND Family Medicine
DX: F07.0 Personality change due to known physiological condition (principal); R41.82 Altered mental status, unspecified; R35.0 Frequency of micturition
CPT/HCPCS: 81002; 87086